=== PATIENT | female | born 1990 | race African-American/Black ===

== ENCOUNTER 2021-06-28 17:05 | Inpatient (IN) | payer OTHER, SELFPAY ==
[2021-06-28] VITALS (10 sets, daily range): BP systolic 116–144; BP diastolic 67–84; PULSE 84–95; TEMP 36.9; BMI 39.7
--- NOTE | 2021-06-28 17:41 | LDADM ---
This patient, Moira Stoner, was admitted to Labor/Delivery/Recovery 103 on 06/28/21 at 17:05. Plans for labor, pain management and were discussed with patient. Patient/family oriented to hospital policies and general routines including ID bracelet, bed and alarms, visiting hours, pain management, procedures, bathroom and other care routines, personal items, smoking policy, room service/diet and guest tray routines, security routines, and visiting hours. Patient/Family are encouraged to report perceived risks to care and to ask questions if they do not understand what they are told or what they should do. See OBIX for further documentation.
[2021-06-28 18:13] LABS: Basophils Percent Auto 0.1 % (0.2-1.2); Eosinophils Percent Auto 0.4 % (0-4.4); Hematocrit 35.2 % (37.0-47.0); Hemoglobin 11.7 g/dL (12.0-15.0); Immature Granulocyte Absolute 0.03 K/mm3 (0.00-0.031); Immature Granulocyte Percent A 0.4 % (0-0.5); Lymphocytes Absolute Auto 1.17 K/mm3 (0.9-3.2); Lymphocytes Percent Auto 16.9 % (18.3-44.2); Mean Corpuscular HGB Conc 33.2 g/dl (32-36); Mean Corpuscular Hemoglobin 28.4 pg (26-34); Mean Corpuscular Volume 85.4 fl (80-100); Mean Platelet Volume 10.6 fl (7.4-10.4); Monocytes Absolute Auto 0.4 K/mm3 (0.1-0.6); Monocytes Percent Auto 5.5 % (2.6-8.5); Neutrophils Absolute Auto 5.3 K/mm3 (1.3-6.7); Neutrophils Percent Auto 76.7 % (45.5-73.1); Platelet Count Result 215 k/mm3 (150-375); Red Blood Count 4.12 M/mm3 (4.2-5.4); Red Cell Distribution Width 13.3 % (11.5-14.5); White Blood Count 6.9 K/mm3 (4.5-10.0)
[2021-06-28] MEDS: DINOPROSTONE 10 MG VAG INSERT VAGINAL (18:18)
[2021-06-29] VITALS (134 sets, daily range): BP systolic 100–205; BP diastolic 53–192; PULSE 70–170; RESP 16; TEMP 36.1–37.4; O2SAT 94–100
[2021-06-29] MEDS: fentaNYL CITRATE INJ (*CRX) 100 MCG/2 ML VIAL 50 MCG IV PUSH ×2 (03:58→06:17)
[2021-06-29] MEDS: LACTATED RINGERS 1,000 ML 125 ML IV CONT ×2 (05:41→06:38)
[2021-06-29] MEDS: OXYTOCIN 30 UNITS/NS 500 ML 30 UNITS/500 ML BAG 6 UNITS IV CONT (05:42)
--- NOTE | 2021-06-29 06:21 | WPDANESEPP ---
Anes - Eval Pre Procedure Procedure: labor epidural Date/Time: 06/29/21 06:21 Surgeon: katharine Preop Diagnosis: pain during labor Pre Op Diagnosis: IOL Patient Data Age: 30 Gender: F Height: 1.63 m Weight: 105 kg Last Vital Signs Temp 37.3 C 06/29/21 00:45 Pulse 89 06/29/21 06:15 BP 128/73 06/29/21 06:15 Allergies Allergy/AdvReac Type Severity Reaction Status Date / Time No Known Allergies Allergy Verified 06/08/21 15:35 Home Medications Medication Instructions Recorded Confirmed Type magnesium 250 mg PO DAILY 06/08/21 06/08/21 History prenat.vits,jorge,uyg-kjdl-tspvd 1 tablet PO DAILY 06/08/21 06/08/21 History [ #2] nitrofurantoin monohyd/m-cryst 100 mg PO Q12H 06/28/21 06/28/21 History [Macrobid] Laboratory Tests 06/28/21 06/28/21 06/28/21 18:03 18:03 18:03 WBC 6.9 K/mm3 K/mm3 (4.5-10.0) RBC 4.12 M/mm3 L M/mm3 (4.2-5.4) Hgb 11.7 g/dL L g/dL (12.0-15.0) Hct 35.2 % L % (37.0-47.0) MCV 85.4 fl fl (80-100) MCH 28.4 pg pg (26-34) MCHC 33.2 g/dl g/dl (32-36) RDW 13.3 % % (11.5-14.5) Plt Count 215 k/mm3 k/mm3 (150-375) MPV 10.6 fl H fl (7.4-10.4) Immature Gran % (Auto) 0.4 % % (0-0.5) Neut % (Auto) 76.7 % H % (45.5-73.1) Lymph % (Auto) 16.9 % L % (18.3-44.2) [place] % (Auto) 5.5 % % (2.6-8.5) Eos % (Auto) 0.4 % % (0-4.4) Baso % (Auto) 0.1 % L % (0.2-1.2) Lymph # (Auto) 1.17 K/mm3 K/mm3 (0.9-3.2) [place] # (Auto) 0.4 K/mm3 K/mm3 (0.1-0.6) Eos # (Auto) 0.0 K/mm3 K/mm3 (0-0.3) Baso # (Auto) 0.0 K/mm3 K/mm3 (0.0-0.1) Abs Immat Gran (auto) 0.03 K/mm3 K/mm3 (0.00-0.031) Absolute Neuts (auto) 5.3 K/mm3 K/mm3 (1.3-6.7) Absolute Nucleated RBC 0.0 K/mm3 K/mm3 (0.0-0.012) Nucleated RBC % 0.0 % % (0.0-0.2) RPR Pending Blood Type O Positive Antibody Screen Negative Patient hx anesthesia problems: none Family hx anesthesia problems: none Results Review: All pre-operative results and documents have been reviewed as part of the pre-operative evaluation. [facility] Family History Family History (Updated 06/08/21 @ 15:38 by Rebecca Jackson RN) Grandparent Hypertension High cholesterol Grandparent Leukemia Diabetes mellitus Mother Fibromyalgia Social History Social History Smoking status: Never smoker Second hand tobacco smoke exposure: No Substance use: never Spiritual care concerns: No Exam Day of Procedure 06/29/21 06:21
[2021-06-29 06:33] LABS: Rapid Plasma Reagin Non-Reactive (NonReactive)
--- NOTE | 2021-06-29 08:45 | WPDOBADMIT ---
Obstetrics - Admit Note Admission Note: record reviewed. Additions to the history and/or subsequent changes in the physical findings follow. 30 y/o at 39 2/7 weeks gestation here for induction of labor. Cervidil overnight, has been withdrawn. AVSS NST reactive TOCO: contractions every 2-4 min ABD soft, nontender, gravid, vertex EXT nontender Cervix 5/90/-2. AROM with clear fluid. A: IUP at 39 2/7 weeks here for induction of labor. P: Oxytocin. Anticipate .
--- NOTE | 2021-06-29 12:22 | PM.OBPNLAB ---
Pain Control Date/time seen: 06/29/21 12:22 Comments: Comfortable. AVSS NST reactive TOCO: contractions every 2-4 min Cervix Complete / +1 Begin pushing.
--- NOTE | 2021-06-29 13:47 | PM.OBPRVD ---
OB - Delivery Note Procedure Delivery date: 06/29/21 Procedure: Induction of labor with Induction method: Per Cervidil Protocol Delivery augmentation: Rupture of Membranes and Pitocin Delivery monitor: External FHT and External Uterine Route of delivery: Episiotomy description: Midline Delivery repair: vicryl (3-0) Specimen: Yes (cord blood) Quantitative Blood Loss (ml): 410 Anesthesia type: Local (1% lidocaine) Disposition: PACU Complications: None Narrative: 30 y/o at 39 1/7 weeks gestation who presented to the hospital for induction of labor. Cervidil was placed overnight and withdrawn the following morning. Oxytocin was administered intravenously. Amniotomy was performed with return of clear fluid. She received an epidural for pain control. Her labor progressed and her cervix dilated completely. She pushed with good effort. A midline episiotomy was made and the 's head delivered to the perineum, followed by the body. The nose and mouth were bulb suctioned. After a delay, the cord was clamped and cut. The infant was handed off the field. Cord blood was collected. The placenta delivered spontaneously and was grossly normal in appearance. The usual 3 vessel cord was noted. The MLE was noted to be free of extension. Ten mL of 1% lidocaine was administered for additional anesthesia. The episiotomy was reapproximated using 3 0 Vicryl in the usual layered fashion. Excellent hemostasis resulted as did excellent reapproximation of the normal anatomy. Needle and instrument counts were correct. The patient was taken to recovery room in stable condition. The infant went to the nursery in stable condition. I was present and scrubbed for the entire delivery. Baby Date of : 06/29/21 Time of : 13:24 Weeks of gestation at delivery: 39 Infant gender: Male Weight (pounds): 7 Weight (ounces): 2 presentation: vertex position: Right Occiput Posterior Placenta delivery description: Spontaneous and Normal Configuration Cord Vessel Description: 3 Vessels and Delayed Cord Clamping score one minute: 8 score five minutes: 8
--- NOTE | 2021-06-29 13:50 | PM.OBDSVD ---
DS: Admitting Diagnosis Discharge Date 07/01/21 Admitting Diagnosis IUP at 39 weeks DS: Discharge Diagnosis Discharge Diagnosis (1) (normal spontaneous vaginal delivery): Code(s): O80 - Encounter for full-term uncomplicated delivery Status: Acute OB - DS: Summary OB Procedures : None OB Procedures Intrapartum: Spontaneous Vag Delivery OB Procedures: : None DS: Data Data Completed and Pending Labs on day of discharge: Labs from last 24 hours 06/28/21 06/28/21 06/28/21 18:03 18:03 18:03 WBC 6.9 RBC 4.12 L Hgb 11.7 L Hct 35.2 L MCV 85.4 MCH 28.4 MCHC 33.2 RDW 13.3 Plt Count 215 MPV 10.6 H Immature Gran % (Auto) 0.4 Neut % (Auto) 76.7 H Lymph % (Auto) 16.9 L [place] % (Auto) 5.5 Eos % (Auto) 0.4 Baso % (Auto) 0.1 L Lymph # (Auto) 1.17 [place] # (Auto) 0.4 Eos # (Auto) 0.0 Baso # (Auto) 0.0 Abs Immat Gran (auto) 0.03 Absolute Neuts (auto) 5.3 Absolute Nucleated RBC 0.0 Nucleated RBC % 0.0 RPR Non-reactive Blood Type O Positive Antibody Screen Negative Discharge Plan Discharge Attending physician on discharge: Wing Chowdary Discharging Clinician: Wing Chowdary Patient Disposition: Home, Self-Care Activity: pelvic rest Diet: regular Discharge Instructions: Call or return if temperature above 100.4? F, increased abdominal pain, increased vaginal bleeding or any new problems. Stand Alone Forms: General Discharge Information Follow-up/Referrals: Wing Chowdary MD [Physician] - 6 Weeks Discharge Medications: New ibuprofen 600 mg tablet 600 mg PO Q6H PRN (Reason: cramps) Qty: 30 RF: 0 Continued magnesium 250 mg Tablet 250 mg PO DAILY RF: 0 #2 Tablet 1 tablet PO DAILY RF: 0 Discontinued nitrofurantoin monohyd/m-cryst [Macrobid] 100 mg Capsule 100 mg PO Q12H RF: 0 Date of admission: 06/28/21 17:05 Primary Care Provider: Luz MariaIman Admitting Provider: Wing Chowdary Attending physician on admission: Wing Chowdary Condition: Stable
[2021-06-29] MEDS: OXYTOCIN 30 UNITS/NS 500 ML 30 UNITS/500 ML BAG 125 UNITS IV CONT (13:51)
[2021-06-29] MEDS: IBUPROFEN 600 MG TABLET PO (14:24)
[2021-06-29] MEDS: BENZOCAINE 20% AER SPR (*SP) 56 GM CAN 1 SPRAY TOPICAL (16:22)
[2021-06-29] MEDS: WITCH HAZEL 40 PADS 1 PAD TOPICAL (16:22)
--- NOTE | 2021-06-29 17:25 | PC.NURSE ---
Pt admitted to room 278,became teary when this RN ask to do baby assessment, states I just want him to be fed. Agreed to help her latch baby, baby making good effort, however mom's nipples are flat and baby unable to obtain and maintain a good latch. Nipple shield retrieved and some brief teaching done as it is obvious mother is becoming frustrated. Baby latches well and suckles with shield. Mother asks how she knows he's getting enough. Explanation of wet diapers, weights and jaundice level will tell if baby is getting adequate colostrum. mother still appears anxious and frustrated. RN steps back and allows mother to work with baby. Mother asks if she can just get a bottle . Grandmother (at bedside) states that mother is just exhausted and frustrated. Formula bottle obtained, directions given. Assessment and teaching deferred at this time.
[2021-06-30 00:50] VITALS: BP 113/61; PULSE 85; RESP 16; TEMP 36.3; O2SAT 100
[2021-06-30] MEDS: IBUPROFEN 600 MG TABLET PO ×3 (02:04→20:11)
[2021-06-30 03:35] VITALS: BP 138/78; PULSE 88; RESP 16; TEMP 36.3; O2SAT 99
--- NOTE | 2021-06-30 04:19 | PC.NURSE ---
06/30/2021 at 0330 Moira called out and states she wants to use a breastpump now. A pump and kit were taken to Moira and I began setting up the pump for her. I need a size 17 flange. states Moira. Well I believe the smallest ones we have are 21. We have 24 and 27 in this kit but let me go check the room. After checking the room I found we only have 21 as the smallest flanges. I informed Moira of this and and she said she could have someone bring the flanges from her house sometime today or tomorrow. I suggested it be as soon as possible so that her breasts can be stimulated to bring her milk in. Oh, ya I know, Moira replied. I asked her how she knows what size she needs for a proper flange fit and she states she has a friend that just graduated as a nurse and she measured Moira. Moira did not offer for me to see her breasts or nipples to see if indeed the size 17 flange was needed. I left the pump in the room and told Moira she needs to pump as soon as possible. Moira states understanding. Moira also asked who is going to review with her questions regarding baby's care. I suggested the purple Mom/Baby guide and the discharge DVD as excellent references and to ask any questions along the way that she gets, that any of us are more than happy to answer. Moira states understanding.
[2021-06-30 04:38] LABS: Hematocrit 30.5 % (37.0-47.0); Hemoglobin 10.1 g/dL (12.0-15.0)
--- NOTE | 2021-06-30 08:28 | PM.OBPNVD ---
OB - PN: Subj Subjective Date/time seen: 06/30/21 08:28 Narrative: Pain OK. Desires circumcision for son. OB - PN: Obj Data Labs CBC & Chem 7: 06/30/21 03:40 Labs: Laboratory Results - last 24 hr 06/30/21 03:40 Hgb 10.1 L Hct 30.5 L OB - PN A/P Plan Comments: A: PPD#1, doing well. P: Routine care. Reviewed circ. Exam Psych: Other: AVSS ABD soft, nontender, fundus firm EXT nontender
[2021-06-30 08:30] VITALS: BP 128/74; PULSE 99; RESP 16; TEMP 36.4; O2SAT 99
--- NOTE | 2021-06-30 10:43 | WPDANLDPN2 ---
Anes-Prog Note L&D Date/Time: 06/30/21 10:43 Comfortable throughout: labor and delivery Neuraxial method: epidural Epidural/Spinal procedure site: tender Neuro status: Neuro function grossly intact. Cardiovascular status: normal Respiratory status: normal Airway patency: baseline Mental status: baseline Post-Op hydration status: normal Vital Signs: Last Vital Signs Temp 97.6 F 06/30/21 08:30 Pulse 99 06/30/21 08:30 Resp 16 06/30/21 08:30 BP 128/74 06/30/21 08:30 Pulse Ox 99 06/30/21 08:30 Pain score (VAS): 03/05 I/O: Intake & Output 06/29/21 06/30/21 06/30/21 23:59 07:59 15:59 Intake Total 120 Output Total 82 Balance -82 120 Post-procedural complaints: none Patient feedback: Patient satisfied with anesthetic care.
[2021-06-30] MEDS: MULTIVIT/MIN/PREN/FOL AC/IRON TABLET 1 TAB PO (11:11)
[2021-06-30 12:20] VITALS: BP 117/69; PULSE 87; RESP 18; TEMP 36.8; O2SAT 98
[2021-06-30 20:20] VITALS: BP 129/72; PULSE 88; RESP 16; TEMP 36.4; O2SAT 99
[2021-07-01 07:10] VITALS: BP 125/61; PULSE 83; RESP 16; TEMP 36.4; O2SAT 99
[2021-07-02 07:58] VITALS: BP 117/80; PULSE 89; RESP 16; TEMP 36.6; O2SAT 98
--- NOTE | 2021-07-17 08:41 | PM.OBDSVD ---
DS: Admitting Diagnosis Discharge Date 07/01/21 Admitting Diagnosis IUP at term DS: Discharge Diagnosis Discharge Diagnosis (1) (normal spontaneous vaginal delivery): Code(s): O80 - Encounter for full-term uncomplicated delivery Status: Acute OB - DS: Summary OB Procedures : None OB Procedures Intrapartum: Spontaneous Vag Delivery OB Procedures: : None Time Spent with Patient Time attestation: Total time spent providing and/or coordinating discharge services: Discharge Plan Discharge Attending physician on discharge: Wing Chowdary Consulting providers: Tracy Naranjo ; Daron Deckre Discharging Clinician: Wing Chowdary Patient Disposition: Home, Self-Care Activity: pelvic rest Diet: regular Discharge Instructions: Education: Mom and Baby Guide Given to: Mother Follow-Up: Call your delivering provider's office for an appointment to be seen in: 6 Weeks Mom and baby [facility] for the follow-up appointment. Appointment Date/Time: July 02, 2021 at 8:00 am What to expect at your follow-up visit: Blood Pressure Check Physical Assessment Call [phone] if you are unable to keep your appointment time. BREAST CARE: * Wear a snug supportive bra. * For engorgement discomfort: Breast Feeding: * Apply warm moist washcloths * Express milk as needed to relieve engorgement * Wear loose clothing Bottle Feeding: * May apply ice packs * For sore nipples: * Identify correct latch-on * Apply warm moist washcloths before and after nursing * Air dry nipples after nursing * May apply Lansinoh cream to nipples EPISIOTOMY/PERINEAL CARE: * Until bleeding stops, use your princess bottle after urinating * Change your pad frequently throughout the day * You may take sitz baths several times a day (fill your bathtub with warm water and soak for 20 minutes.) Do NOT bathe in the water * No tub baths until seen by your physician - You may shower ACTIVITY: * Rest as much as possible. * Do not exercise or lift anything heavier than your baby (such as laundry or other children.) * Avoid stairs or driving as much as possible. * Do not put anything into the vagina. No douching, tampons, or sexual activity until seen by physician. NOTIFY PHYSICIAN IF YOU HAVE ANY QUESTIONS OR IF ANY OF THE FOLLOWING SYMPTOMS OCCUR: * If your episiotomy or incision becomes red, swollen, or more painful than what you have experienced in the hospital. * If your vaginal bleeding becomes foul smelling. * If your vaginal bleeding becomes more heavy than a period or if your bleeding changes from pink to bright red. However, you may pass an occasional walnut-sized clot once or twice for the first week . * If you experience a sharp, shooting pain in you calves. * If you discover a hard, reddened area on your breast or if you experience flu-like symptoms. DIET: * Eat regular, well-balanced meals. * Drink plenty of fluids daily. If , drink to thirst.Call or return if temperature above 100.4? F, increased abdominal pain, increased vaginal bleeding or any new problems. Stand Alone Forms: General Discharge Information Follow-up/Referrals: Wing Chowdary MD [Physician] - 6 Weeks Discharge Medications: New ibuprofen 600 mg tablet 600 mg PO Q6H PRN (Reason: cramps) Qty: 30 0RF Continued magnesium 250 mg Tablet 250 mg PO DAILY prenat.vits,jorge,qcw-ntaf-zdlku Tablet 1 tablet PO DAILY Discontinued nitrofurantoin monohyd/m-cryst [Macrobid] 100 mg Capsule 100 mg PO Q12H Date of admission: 06/28/21 17:05 Primary Care Provider: Luz Maria,Iman Admitting Provider: Wing Chowdary Attending physician on admission: Wing Chowdary Condition: Stable
== END 2021-07-01 11:35 | disposition home or self-care (01) | DRG 807 ==
LOC: ANHLDR 06-29 13:51 → ANHOB2 06-29 17:47
PROVIDERS: Admitting Provider Obstetrics & Gynecology; PCP Family Medicine; Visit Provider Obstetrics & Gynecology
DX: O36.8330 Maternal care for abnormalities of the fetal heart rate or rhythm, third trimester, not applicable or unspecified (principal); Z37.0 Single live birth; Z3A.39 39 weeks gestation of pregnancy
CPT/HCPCS: 36415; 85014; 85018; 85025; 86592; 86850; 86900; 86901; A9270; J2590; J2795; J3010; J7120

== ENCOUNTER 2024-08-31 14:15 | Outpatient (CLI) | payer OTHER, SELFPAY ==
--- OUTSIDE RECORDS SUMMARY | 2024-08-31 14:21 | XMS_ITS | Clinical Summary ---
Author Organization [facility] Address [address] [place] [address] Phone Care Team Providers Care Sales Service Manager Name Role Phone Magnus Davenport MD Primary Care Provider [phone] Medications cetirizine (ZyrTEC) 10 mg tablet Take 10 mg by mouth daily. Active multivitamin,tx -iron-ca-min (THERA-M) 27-0.4 mg Tablet Take 1 Tablet by mouth daily. Active cyanocobalamin 1,000 mcg Tablet Take 1,000 mcg by mouth daily. Active semaglutide 0.25 mg or 0.5 mg (2 mg/3 mL) Pen Injector Inject by subcutaneous injection. Active Active Problems Patient Care Coordination No te Formatting of this note migh t be different from the original. Prev 03/07/23 Problem Noted Date Diagnosed Date Abnormal glucose 03/07/2023 Obesity (BMI 35.0-39.9 without comorbidity) 02/24 Vitamin D deficiency 03/07/2023 Vitamin B12 deficiency (non anemic) 03/07/2023 Encounters Date Type Department Care Team Description 08/24/2024 External Device Data STL ABSTRACTION Provider, Abstract from Last 3 Months Immunizations Immunization Administration Dates Next Due (ADACEL/BOOSTRIX)(10 YR UP) TDAP VACCINE, 0.5ML, IM 04/20/2021 INFLUENZA VACCINE QUADRIVALE NT 6 MOS UP PF IM 11/28/2020 Influenza Seasonal Unspecifi ed Formulation IM 12/27/2022,12/21/2019,11/25/2018 Skin Test TB 12/21/2019,,09/12/2015,2015 Family History Relation Name Status Comments Father Unknown Mother Alive Social History Tobacco Use Types Packs/Day Years Used Date Smoking Tobacco: Never Passive Smoke Exposure: Never Smokeless Tobacco: Never Tobacco Cessation:Counseling Given: No Alcohol Use Standard Drinks/Week Comments Yes 4 (1 standard drink = 0.6 oz pur e alcohol) social Comments No Sex and Gender Information Value Date Recorded Sex Assigned at Not on file Legal Sex Female 1:14 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 Gender Identity Not on file Sexual Orientation Not on file Last Filed Vital Signs Vital Sign Reading Time Taken Comments Blood Pressure 120/80 11/07/2023 10:14 AM CDT Pulse 100 11/07/2023 10:14 AM CDT Temperature 36.2 C (97.1 F) 03/07/2023 9:53 AM ELECTRIC RANGE ASSEMBLER Respiratory Rate 17 03/07/2023 9:53 AM ELECTRIC RANGE ASSEMBLER Oxygen Saturation 96% 11/07/2023 10:14 AM CDT Inhaled Oxygen Concentration - - Weight 88.5 kg (195 lb) 11/07/2023 10:14 AM CDT Height 162.6 cm (5' 4) 11/07/2023 10:14 AM CDT Body Mass Index 33.47 11/07/2023 10:14 AM CDT Plan of Treatment Upcoming Encounters Date Type Department Care Team (Late st Contact Info) Description 11/12/2024 9:00 AM CDT Office Visit [facility] [id number] [place] [id number] Magnus Davenport MD [address] [place] [address] [address] [place] [phone] Health Maintenance Due Date Last Done Comments HEPATITIS B VACCINES (1 of 3 - 19+ 3-dose series) 11/25/2011 HPV/Cotest (21-29) 2013 CERVICAL CANCER SCREENING 2022 HPV/Cotest (30-65) 2022 PAP SMEAR 2022 06/04/2018 Preventative Visit- Commercial 02/25/2024 03/07/2023, 07/17/2016, 05/17/2015 INFLUENZA VACCINE (#1) 2024 4, 12/27/2022, 11/28/2020, Additional history exists DTAP/TDAP/TD VACCINES (2 - Td or Tdap) 04/20/2031 04/20/2021 HPV VACCINES Aged Out No longer eligi ble based on patient's age to complete this topic Insurance [employer] OPEN ACCESS HMO Care Teams Sales Service Manager Relationship Specialty Start Date End Date Magnus Davenport MD [address] [place] [phone] PCP - General Internal Medicine 03/07/23
--- OUTSIDE RECORDS SUMMARY | 2024-08-31 14:21 | XMS_ITS | Clinical Summary ---
Author Organization [facility] Address [address] [place] [phone] Care Team Providers Care Body Coverer Name Role Phone Iman Loera MD Primary Care Provider [phone] Allergies Active Allergy Reactions Criticality Noted Date Comments Fentanyl Nausea only Low 05/17/2022 Medications docusate sodium (Colace) 100 mg capsuleIndicati ons:constipatio n Take 1 capsule (100 mg total) by mouth 2 (two) times a day for 14 days 28 capsule 2 05/17/2022 Active Active Problems Problem Noted Date Diagnosed Date S/P laparoscopic cholecystectomy 05/24/2022 Discharge from [facility] 07/23/2016 Resolved Problems Problem Noted Date Diagnosed Date Resolved Date Symptomatic cholelithiasis 03/30/2022 0 05/24/2022 Overview (03/30/2022): Added automatically from request for surgery [id number] Chronic cholecystitis 03/28/20222022 Assessment & Plan (03/28/2022 8:52 AM SPICE MIXER): We will set the patient up for laparoscopic cholecystectomy. Postoperative issues such as post cholecystectomy diarrhea have been discussed. We have discussed time needed off work and lifting restrictions. All questions answered. Pre-admission testing will be sent in. Consent to be obtained. Surgical History Surgery Date Site/Laterality Comments WISDOM TOOTH EXTRACTION Medical History Medical History Date Comments Anxiety disorder Anxiety - (Adde d by TW Conv) Headache Chronic cholecystitis 03/28/2022 Symptomatic cholelithiasis 03/30/2022 Added automatically from request for surgery [id number] Family History Medical History Relation Name Comments No Known Problems Father Leukemia Maternal Grandfather Family history of leukemia - (Added by TW Conv) No Known Problems Mother No Known Problems Sister Relation Name Status Comments Father Alive Maternal Grandfather Mother Alive Sister Alive Social History Tobacco Use Types Packs/Day Years Used Date Smoking Tobacco: Never Passive Smoke Exposure: Never Smokeless Tobacco: Never Tobacco Cessation:Counseling Given: Not Answered AUDIT-C Answer Date Recorded Q1: How often do you have a drink containing alc ohol? Monthly or less 05/17/2022 Q2: How many drinks containi ng alcohol do you have on a typical day when you are drinking? 3 or 4 05/17/2022 Q3: How often do you have si x or more drinks on one occasion? Less than monthly 05/17/2022 Personal Safety Answer Date Recorded Have you ever been in or are you currently in a harmful physical or emotional relationship or is someone making you feel afraid or unsafe? Denies 05/17/2022 Comments No Sex and Gender Information Value Date Recorded Sex Assigned at Not on file Legal Sex Female 11:48 AM SPICE MIXER Gender Identity Female 03/23/2022 7:34 AM SPICE MIXER Sexual Orientation Not on file Obstetrics History Last Filed Vital Signs Vital Sign Reading Time Taken Comments Blood Pressure 118/80 05/23/2022 11:21 AM CDT Pulse 82 05/23/2022 11:21 AM CDT Temperature 35.8 C (96.4 F) 05/23/2022 11:21 AM CDT Respiratory Rate 18 05/17/2022 1:00 PM CDT Oxygen Saturation 96% 05/23/2022 11:21 AM CDT Inhaled Oxygen Concentration - - Weight 101 kg (222 lb 11.2 oz) 05/23/2022 11:21 AM CDT Height 162.6 cm (5' 4) 05/23/2022 11:21 AM CDT Body Mass Index 38.23 05/23/2022 11:21 AM CDT Plan of Treatment Health Maintenance Due Date Last Done Comments Cervical Cancer Screening 1992 Depression Screening 1992 Hepatitis C Screening 1992 Varicella Vaccines (1 of 2 - 13+ 2-dose series) 2005 Hepatitis B Screening 2010 Regular Well Visit/Exam 18-64 2010 Covid-19 Vaccine (4 - 2023-2 5 season) 2023 08/20/2021, 06/19/2020, 05/08/2020 Influenza Vaccine (Season Ended) 2024 11/28/2020, 12/21/2019, 11/25/2018 DTaP/Tdap/Td Vaccine (2 - Td or Tdap) 04/20/2031 04/20/2021 HPV Vaccines Aged Out No longer eligi ble based on patient's age to complete this topic Pneumococcal vaccine <65 Aged Out No longer eligible based on patient's age to complete this topic Medical Devices Implanted Type Area Pattern Marking Supervisor Device Identifier Shelf Expiration Date Model / Serial / Lot [employer] Hem-O-Benton Ligate Nonabsorbable Cartridge Medium Large Latex Free [id number] - [id number] Implanted:Qty: 1 on 05/17/2022 by Julian Carter MD at [facility] N/A: Abdomen [employer] 02/05/2027 [id number] / / [id number] Description:6 clips used Insurance [employer] OOS Member Subscriber Plan / Payer (Ef fective 2019-Present) Name:Moira Stoner Relation to Subscriber:Self Name:Moira Stoner Payer ID:[id number] (NAIC) Type:Per Vices Address: [facility] [id number] [facility] Address: [address] [address] [place] [address] [employer]IG[employer] OPEN ACCESS CIGNA OPEN ACCESS Care Teams Body Coverer Relationship Specialty Start Date End Date Iman Loera MD PCP - General 07/23/16
--- OUTSIDE RECORDS SUMMARY | 2024-08-31 14:21 | XMS_ITS | Encounter Summary ---
Author Organization [facility] Address [address] [place] [address] Care Team Providers Care Rn Travel Name Role Phone Magnus Davenport MD Primary Care Provider [phone] Encounter Details Date Type Department Care Team (Late Contact Info) Description 07/10/2018 Lab Requisition [facility] General Laboratory Services S Formerly [facility] [address] [place] [address] [place] [address] [facility] [address] [place] [address] Encounter for general adult medical examination without abnormal findings Social History Tobacco Use Types Packs/Day Years Used Date Smoking Tobacco: Never Assessed Comments Unknown Sex and Gender Information Value Date Recorded Sex Assigned at Not on file Legal Sex Female 1:14 PM ASSOCIATE RELATIONS SPECIALIST Gender Identity Not on file Sexual Orientation Not on file documented as of this encounter Plan of Treatment Upcoming Encounters Date Type Department Care Team (Late Contact Info) Description 11/12/2024 9:00 AM CDT Office Visit [facility] Primary Care [address] [place] [address] Magnus Davenport MD [address] [place] [address] [address] [place] [address] documented as of this encounter Procedures Procedure Name Priority Date/Time Associated Diagnosis Comments HEPATITIS B SURFACE AB, QUANT Routine 07/10/2018 10:32 AM CDT Encounter for general adult medical examination without abnormal findings documented in this encounter Results * (ABNORMAL) HEPATITIS B SURFACE AB, QUANT (07/10/2018 10:32 AM CDT) HEPATITIS B SURF AB,QN <4.0 mlU/mL 07/10/2018 8:50 PM CDT [facility] HEPATITIS B SURFACE AB INTERP Non-reacti ve(A) See Interp 07/10/2018 8:50 PM CDT [facility] Blood Collection / Unknown 07/10/2018 10:32 AM CDT 07/10/2018 4:03 PM CDT Narrative [facility] - 07/10/2018 8:50 PM CDT Patient does not have immunity to Hepatitis B virus. This assay is used to determine immune status to Hepatitis B as greater than or equal to 10 mIU/mL as per CDC guidelines (MMWR:vol 55: RR-16, 2006). Luis Marshall MD CHEMISTRY ORDERABLES Final R esult [facility] CLIA# [id number] [address] [facility] [place] [address] documented in this encounter Visit Diagnoses Diagnosis Encounter for general adult medical examination without abnormal findings Routine general medical examination at a health care facility documented in this encounter Additional Health Concerns Infection Onset Date Last Indicated Resolved Time R/O COVID-19 10/15/2019 10/15/2019 10/17/2019 1:31 AM CDT R/O COVID-19 01/11/2020 01/11/2020 01/13/2020 3:55 AM ASSOCIATE RELATIONS SPECIALIST COVID-19 01/11/2020 01/11/2020 02/10/2020 1:16 AM ASSOCIATE RELATIONS SPECIALIST documented as of this encounter Care Teams Rn Travel Relationship Specialty Start Date End Date Magnus Davenport MD [address] [place] [phone] PCP - General Internal Medicine 03/07/23 documented as of this encounter
--- OUTSIDE RECORDS SUMMARY | 2024-08-31 14:21 | XMS_ITS | Referral Summary ---
Author Organization [facility] Address [address] [place] [address] Care Team Providers Care Hydroelectric Plant Mechanical Engineer Name Role Phone Iman Loera MD Primary Care Provider Allergies Active Allergy Reactions Criticality Noted Date Comments Fentanyl Nausea only Low 05/17/2022 Medications docusate sodium (Colace) 100 mg capsuleIndicati ons:constipatio n Take 1 capsule (100 mg total) by mouth 2 (two) times a day for 14 days 28 capsule 2 05/17/2022 Active Active Problems Problem Noted Date Diagnosed Date S/P laparoscopic cholecystectomy 05/24/2022 Discharge from [facility] 07/23/2016 Resolved Problems Problem Noted Date Diagnosed Date Resolved Date Symptomatic cholelithiasis 03/30/2022 0 05/24/2022 Overview (03/30/2022): Added automatically from request for surgery [id number] Chronic cholecystitis 03/28/20222022 Assessment & Plan (03/28/2022 8:52 AM CASH POSTER): We will set the patient up for laparoscopic cholecystectomy. Postoperative issues such as post cholecystectomy diarrhea have been discussed. We have discussed time needed off work and lifting restrictions. All questions answered. Pre-admission testing will be sent in. Consent to be obtained. Social History Tobacco Use Types Packs/Day Years [...] on file Legal Sex Female 11:48 AM CASH POSTER Gender Identity Female 03/23/2022 7:34 AM CASH POSTER Sexual Orientation Not on file Last Filed [...] 05/23/2022 11:21 AM CDT Plan of Treatment Not on file Medical Devices Implanted Type Area Center Specialists Device Identifier Shelf Expiration Date Model / Serial / Lot [employer] Weck Hem-O-Benton Ligate Nonabsorbable Cartridge Medium Large Latex Free [id number] - [id number] Implanted:Qty: 1 on 05/17/2022 by Julian Carter MD at [facility] N/A: Abdomen [employer] 02/05/2027 [id number] / / [id number] Description:6 clips used Insurance [facility] OOS [facility] CHOICE PLUS CIGNA OPEN ACCESS CIGNA OPEN ACCESS Care Teams Hydroelectric Plant Mechanical Engineer Relationship Specialty Start Date End Date Iman Loera MD PCP - General 07/23/16
--- OUTSIDE RECORDS SUMMARY | 2024-08-31 14:21 | XMS_ITS | Clinical Summary ---
Author Organization [facility] Address [address] [place] [address] Phone Care Team Providers Care Glass Beveler Name Role Phone Jael Flynn APRN, ODD BUNDLE WORKER Unavailable [phone] Allergies No known active allergies Medications pantoprazole (PROTONIX) 40 MG Tablet Delayed Response Take 1 Tablet by mouth daily. 30 Tablet 5 04/12/2022 Active Active Problems No known active problems Immunizations Immunization Administration Dates Next Due Influenza Vaccine greater than 3 yrs 11/25/2018 Influenza Vaccine, Quadrivalent, PF 11/28/2020 Influenza, Seasonal, Injectable, Undefined 12/20,11/25/2018 TB Skin Test 09/12/2015,09/05/2015 TDAP Vaccine 04/20/2021 Family History Medical History Relation Name Comments Cancer Maternal Grandfather Diabetes Maternal Grandfather Relation Name Status Comments Maternal Grandfather Social History Tobacco Use Types Packs/Day Years Used Date Smoking Tobacco: Never Smokeless Tobacco: Never Tobacco Cessation:Counseling Given: No Alcohol Use Standard Drinks/Week Comments Yes 0 (1 standard drink = 0.6 oz pur e alcohol) PHQ-2 Answer Date Recorded Total Score - Questions 1-9 0 06/2020 Education Answer Date Recorded What is the highest level of school you have completed or the highest degree you have received? Associate degree: academic program 02/20/2022 Comments No Sex and Gender Information Value Date Recorded Sex Assigned at Not on file Legal Sex Female 8:50 PM CDT Gender Identity Not on file Sexual Orientation Not on file Last Filed Vital Signs Vital Sign Reading Time Taken Comments Blood Pressure 124/82 02/21/2022 8:49 AM EARTH SCIENCES PROFESSOR Pulse 93 02/21/2022 8:49 AM EARTH SCIENCES PROFESSOR Temperature 36.3 C (97.4 F) 02/21/2022 8:49 AM EARTH SCIENCES PROFESSOR Respiratory Rate 16 02/21/2022 8:49 AM EARTH SCIENCES PROFESSOR Oxygen Saturation 98% 02/21/2022 8:49 AM EARTH SCIENCES PROFESSOR Inhaled Oxygen Concentration - - Weight 105.1 kg (231 lb 11.2 oz) 2021 8:49 AM EARTH SCIENCES PROFESSOR Height 165.1 cm (5' 5) 02/21/2022 8:49 AM EARTH SCIENCES PROFESSOR Body Mass Index 38.56 02/21/2022 8:49 AM EARTH SCIENCES PROFESSOR Plan of Treatment Health Maintenance Due Date Last Done Comments Hepatitis C Virus (HCV) Screening 1992 Human Papillomavirus (HPV) Immunization (1 - 3-dose series) 11/25/2007 Hepatitis B Immunization (1 of 3 - 19+ 3-dose series) 11/25/2011 Pap Smear 06/04/2021 06/04/2018 Cervical Cancer Screening (CCS) 2022 HPV/Cotest 2022 SARS-COV-2 Immunization ( season) 2023 12/12/2021, 08/20/2021, 06/19/2020, Additional history exists Influenza Immunization (#1) 2024 1006/2020, 12/21/2019, 11/25/2018, Additional history exists Respiratory Syncytial Virus (RSV) Immunization (Adult) (1 - 1-dose 75+ series) 11/25/2067 DTaP/Tdap/Td Immunization Discontinued 04/20/2021 Meningococcal Immunization (ACWY) Aged Out No longer eligible based on patient's age to complete this topic Pneumococcal Immunization Combined Aged Out No longer eligible based on patient's age to complete this topic Rotavirus Immunization Aged Out No lo nger eligible based on patient's age to complete this topic Procedures Procedure Name Priority Date/Time Associated Diagnosis Comments PATHOLOGY CYTOLOGY COMPOSITOR APPRENTICE Routine 06/04/2018 from Last 3 Months or Most Recently Relevant to Health Maintenance Results * PATHOLOGY CYTOLOGY COMPOSITOR APPRENTICE (06/04/2018) Other Jael Flynn APRN, CNP PATHOLOGY/CYTOLOGY ORDER VALDEMAR Final Result from Last 3 Months or Most Recently Relevant to Health Maintenance Insurance [employer] Care Teams Glass Beveler Relationship Specialty Start Date End Date Jael Flynn APRN, CNP [address] [place] [id number] Nurse Practitioner Obstetrics & Gynecology 04/04/20
[2024-08-31 15:44] LABS: Hematocrit 31.4 % (37.0-47.0); Hemoglobin 10.5 g/dL (12.0-15.0); Mean Corpuscular HGB Conc 33.4 g/dl (32-36); Mean Corpuscular Hemoglobin 28.7 pg (26-34); Mean Corpuscular Volume 85.8 fl (80-100); Platelet Count Result 182 k/mm3 (150-375); Red Blood Count 3.66 M/mm3 (4.2-5.4); White Blood Count 8.0 K/mm3 (4.5-10.0)
[2024-08-31 16:00] LABS: Glucose 1 Hour PP 50gm Dose 126 mg/dL
== END 2024-08-31 14:16 | disposition home or self-care (01) ==
LOC: ANHLAB 14:18
PROVIDERS: PCP Internal Medicine; Visit Provider Obstetrics & Gynecology
DX: Z34.90 Encounter for supervision of normal pregnancy, unspecified, unspecified trimester (principal); Z3A.00 Weeks of gestation of pregnancy not specified
CPT/HCPCS: 36415; 82947; 85027

== ENCOUNTER 2024-09-22 11:23 | Outpatient (CLI) | payer OTHER, SELFPAY ==
--- NOTE | ~2024-09-22 | US_ITS ---
EXAMINATION: US OB follow up DATE: 09/22/2024 11:54 INDICATION: Size greater than gestational dates TECHNIQUE: Real-time transabdominal obstetric ultrasound. FINDINGS: No prior studies for comparison. There is a single living fetus in vertex presentation. The placenta is anterior without placenta pre via. cardiac activity and movement is noted with a heart rate of 134 beats per minute. T he amniotic fluid volume is normal. NAWAF measures 19.8 cm. The following biometric data were obtained: BPD: 82mm corresponds to gestational age 33 weeks 1 days. Head circumference: 298mm corresponds to gestational age 33 weeks 0 days. Abdominal circumference: 289mm corresponds to gestational age 33 weeks 0 days. Femur length: 57mm corresponds to gestational age 30 weeks 0 days. Estimated weight: 1906grams +/- 286grams.] IMPRESSION: 1. Single living intrauterine in vertex presentation with an estimated gestational age of 32 weeks 2 days by current ultrasound. 2. Normal placenta. 3: Normal NAWAF measures 19.8 cm. Reviewed, dictated and finalized at location A. IMPRESSION: 1. Single living intrauterine in vertex presentation with an estimat ed gestational age of 32 weeks 2 days by current ultrasound. 2. Normal placenta. 3: Normal NAWAF measures 19.8 cm.
== END 2024-09-22 11:24 | disposition home or self-care (01) ==
LOC: MICIMG 11:24
PROVIDERS: PCP Internal Medicine; Visit Provider Obstetrics & Gynecology
DX: Z34.92 Encounter for supervision of normal pregnancy, unspecified, second trimester (principal); Z3A.28 28 weeks gestation of pregnancy
CPT/HCPCS: 76816

== ENCOUNTER 2024-09-29 11:09 | Outpatient (CLI) | payer OTHER, SELFPAY ==
[2024-09-29 11:35] LABS: Hematocrit 31.7 % (37.0-47.0); Hemoglobin 10.5 g/dL (12.0-15.0); Mean Corpuscular HGB Conc 33.1 g/dl (32-36); Mean Corpuscular Hemoglobin 28.4 pg (26-34); Mean Corpuscular Volume 85.7 fl (80-100); Platelet Count Result 186 k/mm3 (150-375); Red Blood Count 3.70 M/mm3 (4.2-5.4); White Blood Count 5.5 K/mm3 (4.5-10.0)
--- OUTSIDE RECORDS SUMMARY | 2024-09-29 11:51 | XMS_ITS | Clinical Summary ---
Author Organization [facility] Address [address] [place] [phone] Care Team Providers Care Assistant General Manager Name Role Phone Iman Loera MD Primary Care Provider [phone] Allergies Active Allergy Reactions Criticality Noted Date Comments Fentanyl Nausea only Low 05/17/2022 Medications docusate sodium (Colace) 100 mg capsuleIndicati ons:constipatio n Take 1 capsule (100 mg total) by mouth 2 (two) times a day for 14 days 28 capsule 2 05/17/2022 Active Active Problems Problem Noted Date Diagnosed Date S/P laparoscopic cholecystectomy 05/24/2022 Discharge from [facility] 07/23/2016 Resolved Problems Problem Noted Date Diagnosed Date Resolved Date Symptomatic cholelithiasis 03/30/2022 0 05/24/2022 Overview (03/30/2022): Added automatically from request for surgery [id number] Chronic cholecystitis 03/28/20222022 Assessment & Plan (03/28/2022 8:52 AM DAIRY EQUIPMENT SPECIALIST): We will set the patient up for [...] 03/30/2022 Added automatically from request for surgery [id number] Family History Medical History Relation Name Comments [...] on file Legal Sex Female 11:48 AM DAIRY EQUIPMENT SPECIALIST Gender Identity Female 03/23/2022 7:34 AM DAIRY EQUIPMENT SPECIALIST Sexual Orientation Not on file Obstetrics History [...] Screening 2010 Regular Well Visit/Exam 18-64 2010 HPV Vaccines (1 - 3-dose SCD M series) 11/25/2019 Covid-19 Vaccine (2023-2 5 season) 2023 08/20/2021, 06/19/2020, 05/08/2020 Influenza Vaccine (#1) 2024 , 12/21/2019, 11/25/2018 DTaP/Tdap/Td Vaccine (2 - Td or Tdap) 04/20/2031 04/20/2021 Pneumococcal vaccine <65 Aged Out No longer eligible based on patient's age to complete this topic Medical Devices Implanted Type Area Supervisor Opening And Picking Device Identifier Shelf Expiration Date Model / Serial / Lot Fenergo Weck Hem-O-Benton Ligate Nonabsorbable Cartridge Medium Large Latex Free [id number] - [id number] Implanted:Qty: 1 on 05/17/2022 by Julian Carter MD at [facility] N/A: Abdomen [employer] 02/05/2027 [id number] / / [id number] Description:6 clips used Insurance Yours Florally OOS Member Subscriber Plan / Payer (Ef fective 2019-Present) Name:Moira Stoner Relation to Subscriber:Self Name:Moira Stoner Payer ID:[id number] (NAIC) Type:[employer] Address: [facility] [id number] [address] [facility]ICE [facility] H[facility]/PPO Address: [address] [address] [place] [address] CIGNA OPEN ACCESS CIGNA OPEN ACCESS Care Teams Assistant General Manager Relationship Specialty Start Date End Date Iman Loera MD PCP - General 07/23/16
--- OUTSIDE RECORDS SUMMARY | 2024-09-29 11:51 | XMS_ITS | Encounter Summary ---
Author Organization [facility] Address [address] [place] [address] Care Team Providers Care Forest Fire Officer Name Role Phone Magnus Davenport MD Primary Care Provider [phone] Encounter Details Date Type Department Care Team (Late Contact Info) Description 07/10/2018 Lab Requisition [facility] General Laboratory Services S [facility]ly [facility] [address] [place] [address] [place] [phone] [facility] [address] [place] [address] Encounter for general adult medical examination without abnormal findings Social History Tobacco Use Types Packs/Day Years Used Date Smoking Tobacco: Never Assessed Comments Unknown Sex and Gender Information Value Date Recorded Sex Assigned at Not on file Legal Sex Female 1:14 PM HOGSHEAD PRESS OPERATOR Gender Identity Not on file Sexual Orientation Not on file documented as of this encounter Plan of Treatment Upcoming Encounters Date Type Department Care Team (Late Contact Info) Description 11/12/2024 9:00 AM CDT Office Visit [facility] Primary Care [address] [place] [address] Magnus Davenport MD [address] [place] [address] [address] [place] [address] documented as of this encounter Procedures Procedure Name Priority Date/Time Associated Diagnosis Comments HEPATITIS B SURFACE AB, QUANT Routine 07/10/2018 10:32 AM CDT Encounter for general adult medical examination without abnormal findings documented in this encounter Results * (ABNORMAL) HEPATITIS B SURFACE AB, QUANT (07/10/2018 10:32 AM CDT) HEPATITIS B SURF AB,QN <4.0 mlU/mL 07/10/2018 8:50 PM CDT [facility] HEPATITIS B SURFACE AB INTERP Non-reacti ve(A) See Interp 07/10/2018 8:50 PM CDT [facility] Blood Collection / Unknown 07/10/2018 10:32 AM CDT 07/10/2018 4:03 PM CDT Narrative [facility] - 07/10/2018 8:50 PM CDT Patient does not have immunity to Hepatitis B virus. This assay is used to determine immune status to Hepatitis B as greater than or equal to 10 mIU/mL as per CDC guidelines (MMWR:vol 55: RR-16, 2006). Luis Marshall MD CHEMISTRY ORDERABLES Final R esult [facility] CLIA# [id number] [address] [facility] [place] [address] documented in this encounter Visit Diagnoses Diagnosis Encounter for general adult medical examination without abnormal findings Routine general medical examination at a health care facility documented in this encounter Additional Health Concerns Infection Onset Date Last Indicated Resolved Time R/O COVID-19 10/15/2019 10/15/2019 10/17/2019 1:31 AM CDT R/O COVID-19 01/11/2020 01/11/2020 01/13/2020 3:55 AM HOGSHEAD PRESS OPERATOR COVID-19 01/11/2020 01/11/2020 02/10/2020 1:16 AM HOGSHEAD PRESS OPERATOR documented as of this encounter Care Teams Forest Fire Officer Relationship Specialty Start Date End Date Magnus Davenport MD [address] [place] [phone] PCP - General Internal Medicine 03/07/23 documented as of this encounter
--- OUTSIDE RECORDS SUMMARY | 2024-09-29 11:51 | XMS_ITS | Encounter Summary ---
Author Organization [facility] Address [address] [place] [address] Care Team Providers Care Brick Extruder Operator Name Role Phone Magnus Davenport MD Primary Care Provider [phone] Encounter Details Date Type Department Care Team (Late Contact Info) Description 09/28/2024 External Device Data [facility] ABSTRACTION Provider, Abstract NO ADDRESS ON FILE Social History Tobacco Use Types Packs/Day Years Used Date Smoking Tobacco: Never Passive Smoke Exposure: Never Smokeless Tobacco: Never Alcohol Use Standard Drinks/Week Comments Yes 4 (1 standard drink = 0.6 oz pur e alcohol) social Comments No Sex and Gender Information Value Date Recorded Sex Assigned at Not on file Legal Sex Female 1:14 PM MUSEUM EXHIBIT TECHNICIAN Gender Identity Not on file Sexual Orientation Not on file documented as of this encounter Plan of Treatment Upcoming Encounters Date Type Department Care Team ([facility] Contact Info) Description 11/12/2024 9:00 AM CDT Office Visit [facility] Primary Care [address] [address] Magnus Davenport MD [address] [place] [phone] documented as of this encounter Visit Diagnoses Not on filedocumented in this encounter Care Teams Brick Extruder Operator Relationship Specialty Start Date End Date Magnus Davenport MD [address] [place] [phone] PCP - General Internal Medicine 03/07/23 documented as of this encounter
--- OUTSIDE RECORDS SUMMARY | 2024-09-29 11:51 | XMS_ITS | Clinical Summary ---
Author Organization [facility] Address [address] [place] [address] Phone Care Team Providers Care Clinic Office Manager Name Role Phone Jael Flynn APRN, DRIVER GUIDE Unavailable [phone] Allergies No known active allergies Medications pantoprazole [...] Comments Blood Pressure 124/82 02/21/2022 8:49 AM GRE INSTRUCTOR Pulse 93 02/21/2022 8:49 AM GRE INSTRUCTOR Temperature 36.3 C (97.4 F) 02/21/2022 8:49 AM GRE INSTRUCTOR Respiratory Rate 16 02/21/2022 8:49 AM GRE INSTRUCTOR Oxygen Saturation 98% 02/21/2022 8:49 AM GRE INSTRUCTOR Inhaled Oxygen Concentration - - Weight 105.1 kg (231 lb 11.2 oz) 02/21/2022 8:49 AM GRE INSTRUCTOR Height 165.1 cm (5' 5) 02/21/2022 8:49 AM GRE INSTRUCTOR Body Mass Index 38.56 02/21/2022 8:49 AM GRE INSTRUCTOR Plan of Treatment Health Maintenance Due Date Last Done Comments Hepatitis C Virus (HCV) Screening 1992 Hepatitis B Immunization (1 of 3 - 19+ 3-dose series) 11/25/2011 Human Papillomavirus (HPV) Immunization (1 - 3-dose SCDM series) 11/25/2019 Pap Smear 06/04/2021 06/04/2018 Cervical Cancer Screening (CCS) 2022 HPV/Cotest 2022 SARS-COV-2 Immunization ( season) 2023 12/12/2021, 08/20/2021, 06/19/2020, Additional history exists Influenza Immunization (#1) 2024 100 06/2020, 12/21/2019, 11/25/2018, Additional history exists Respiratory Syncytial [...] Priority Date/Time Associated Diagnosis Comments PATHOLOGY CYTOLOGY MEDIA MONITOR Routine 06/04/2018 from Last 3 Months or Most Recently Relevant to Health Maintenance Results * PATHOLOGY CYTOLOGY MEDIA MONITOR (06/04/2018) Other Jael Flynn APRN, CNP PATHOLOGY/CYTOLOGY ORDER VALDEMAR Final Result from Last 3 Months or Most Recently Relevant to Health Maintenance Insurance [employer] Care Teams Clinic Office Manager Relationship Specialty Start Date End Date Jael Flynn APRN, CNP [address] [place] [id number] Nurse Practitioner Obstetrics & Gynecology 04/04/20
--- OUTSIDE RECORDS SUMMARY | 2024-09-29 11:51 | XMS_ITS | Clinical Summary ---
Author Organization [facility] Address [address] [place] [address] Phone Care Team Providers Care Check And Transfer Beader Name Role Phone Magnus Davenport MD Primary Care Provider [phone] Medications cetirizine (ZyrTEC) 10 mg tablet Take [...] Encounters Date Type Department Care Team Description 09/28/2024 External Device Data [facility] ABSTRACTION Provider, Abstract 09/08/2024 External Device Data [facility] ABSTRACTION Provider, Abstract 09/08/2024 External Device Data [facility] ABSTRACTION Provider, Abstract 08/24/2024 External Device Data [facility] ABSTRACTION Provider, Abstract from Last 3 Months Immunizations Immunization Administration Dates Next Due (ADACEL/BOOSTRIX)(10 YR UP) TDAP VACCINE, 0.5ML, IM 04/20/2021 INFLUENZA VACCINE QUADRIVALE NT 6 MOS UP PF IM 11/28/2020 Influenza Seasonal Unspecifi ed Formulation IM 12/27/2022,12/21/2019,11/25/2018 Skin Test TB 12/21/2019, 9,09/12/2015,2015 Family History Relation Name Status Comments Father [...] on file Legal Sex Female 1:14 PM CARE PROGRAM RESIDENT Gender Identity Not on file Sexual Orientation Not on file Last Filed Vital Signs Vital Sign Reading Time Taken Comments Blood Pressure 120/80 11/07/2023 10:14 AM CDT Pulse 100 11/07/2023 10:14 AM CDT Temperature 36.2 C (97.1 F) 03/07/2023 9:53 AM CARE PROGRAM RESIDENT Respiratory Rate 17 03/07/2023 9:53 AM CARE PROGRAM RESIDENT Oxygen Saturation 96% 11/07/2023 10:14 AM CDT Inhaled Oxygen Concentration - - Weight 88.5 kg (195 lb) 11/07/2023 10:14 AM CDT Height 162.6 cm (5' 4) 11/07/2023 10:14 AM CDT Body Mass Index 33.47 11/07/2023 10:14 AM CDT Plan of Treatment Upcoming Encounters Date Type Department Care Team (Late st Contact Info) Description 11/12/2024 9:00 AM CDT Office Visit [facility] Primary Care [address] [place] [phone] Magnus Davenport MD [address] [place] [address] [address] [place] [phone] Health Maintenance Due Date Last Done Comments HPV VACCINES (1 - 3-dose series) 11/25/2007 HEPATITIS B VACCINES (1 of 3 - 19+ 3-dose series) 11/25/2011 HPV/Cotest (21-29) 2013 CERVICAL CANCER SCREENING 2022 HPV/Cotest (30-65) 2022 PAP SMEAR 2022 06/04/2018 Preventative Visit- Commercial 02/25/2024 03/07/2023 INFLUENZA VACCINE (#1) 2024 4, 12/27/2022, 11/28/2020, Additional history exists DTAP/TDAP/TD VACCINES (2 - T d or Tdap) 04/20/2031 04/20/2021 Insurance OPEN ACCESS HMO Care Teams Check And Transfer Beader Relationship Specialty Start Date End Date Magnus Davenport MD [address] [place] [phone] PCP - General Internal Medicine 03/07/23
[2024-09-29 12:23] LABS: Syphilis IgG/IgM Antibody Non-Reactive (Nonreactive)
[2024-09-29 12:35] LABS: HIV 1/2 Ab P24 Ag Result Negative (Negative)
== END 2024-09-29 11:10 | disposition home or self-care (01) ==
LOC: ANHLAB 11:10
PROVIDERS: PCP Internal Medicine; Visit Provider Obstetrics & Gynecology
DX: Z34.90 Encounter for supervision of normal pregnancy, unspecified, unspecified trimester (principal)
CPT/HCPCS: 36415; 85027; 86593; 86703; G0432

== ENCOUNTER 2024-10-29 10:51 | Outpatient (CLI) | payer OTHER, SELFPAY ==
--- NOTE | ~2024-10-29 | US_ITS ---
EXAMINATION: US OB follow up DATE: 10/29/2024 11:10 INDICATION: -induced/gestational hypertension during third trimester . TECHNIQUE: Real-time ultrasound of the pelvis was performed. The interpreting radiologist was not present for the study. COMPARISON: None. FINDINGS: There is a single living fetus in vertex presentation. The placenta is anterior and not low-lying. heart rate is 139 beats per minute (bpm). The amniotic fluid index is 14.8 cm, which is normal (5th%-95%: 7.7-24.9 cm at 36 weeks estimated gestational age). The following biometric data were obtained: BPD: 9.2 cm -> 37 weeks 1 days Head circumference: 33.2 cm -> 37 weeks 6 days Abdominal circumference: 35.7 cm -> 39 weeks 4 days Femur length: 7.3 cm -> 37 weeks 2 days These measurements are concordant. Head circumference to abdominal circumference ratio: 0.93 (normal range 0.90-1.06). Estimated weight: 3537 g (+/-) 531 g or 7 lbs. 13 oz. (+/-) 1 lb. 3 oz. IMPRESSION: 1. Single living fetus in vertex presentation with heart rate of 139 bpm. 2. Normal amniotic fluid index of 14.8 cm. 3. Estimated weight is 95th percentile by Hadlock criteria when 11/22/2024 is used as the estimated date of delivery (CHARBEL). Please correlate with clinical information or earlier ultrasounds for most accurate CHARBEL. Reviewed, dictated and finalized at location A. IMPRESSION: 1. Single living fetus in vertex presentation with heart rate of 139 bpm. 2. Normal amniotic fluid index of 14.8 cm. 3. Estimated weight is 95th percentile by Hadlock criteria when 11/22/2024 is used as the estimated date of delivery (CHARBEL). Please correlate with clinica l information or earlier ultrasounds for most accurate CHARBEL.
== END 2024-10-29 10:52 | disposition home or self-care (01) ==
LOC: MICIMG 10:52
PROVIDERS: PCP Obstetrics & Gynecology; Visit Provider Obstetrics & Gynecology
DX: O13.9 Gestational [pregnancy-induced] hypertension without significant proteinuria, unspecified trimester (principal); Z3A.00 Weeks of gestation of pregnancy not specified
CPT/HCPCS: 76816

== ENCOUNTER 2024-11-03 10:05 | Outpatient (CLI) | payer OTHER, SELFPAY ==
[2024-11-03 11:31] LABS: OBXCEM ROM Plus Negative (Negative)
--- OUTSIDE RECORDS SUMMARY | 2024-11-03 11:38 | XMS_ITS | Clinical Summary ---
Author Organization [facility] Address [address] [place] [address] Care Team Providers Care Digital Asset Manager Name Role Phone Iman Loera MD Primary Care Provider [phone] Allergies Active Allergy Reactions Criticality Noted Date Comments Fentanyl Nausea only Low 05/17/2022 Medications docusate sodium (Colace) 100 mg capsuleIndicati ons:constipatio n Take 1 capsule (100 mg total) by mouth 2 (two) times a day for 14 days 28 capsule 2 05/17/2022 Active Active Problems Problem Noted Date Diagnosed Date S/P laparoscopic cholecystectomy 05/24/2022 Discharge from [facility] 07/23/2016 Resolved Problems Problem Noted Date Diagnosed Date Resolved Date Symptomatic cholelithiasis 03/30/2022 0 05/24/2022 Overview (03/30/2022): Added automatically from request for surgery [id number] Chronic cholecystitis 03/28/20222022 Assessment & Plan (03/28/2022 8:52 AM VISITOR SERVICES SPECIALIST): We will set the patient up [...] 03/30/2022 Added automatically from request for surgery [id number] Family History Medical History Relation Name Comments [...] on file Legal Sex Female 11:48 AM VISITOR SERVICES SPECIALIST Gender Identity Female 03/23/2022 7:34 AM VISITOR SERVICES SPECIALIST Sexual Orientation Not on file Obstetrics [...] this topic Medical Devices Implanted Type Area Wheat Washer Device Identifier Shelf Expiration Date Model / Serial / Lot Comply365 Weck Hem-O-Benton Ligate Nonabsorbable Cartridge Medium Large Latex Free [id number] - [id number] Implanted:Qty: 1 on 05/17/2022 by Julian Carter MD at [facility] N/A: Abdomen [employer] 02/05/2027 [id number] / / [id number] Description:6 clips used Insurance [employer] OOS Member Subscriber Plan / Payer (Ef fective 2019-Present) Name:Moira Stoner Relation to Subscriber:Self Name:Moira Stoner Payer ID:[id number] (NAIC) Type:[id number] Learning Address: [facility] [id number] CHOICE PLUS CIGNA OPEN ACCESS CIGNA OPEN ACCESS Care Teams Digital Asset Manager Relationship Specialty Start Date End Date Iman Loera MD PCP - General 07/23/16
--- OUTSIDE RECORDS SUMMARY | 2024-11-03 11:38 | XMS_ITS | Clinical Summary ---
Author Organization [facility] Address [address] [place] [address] Phone Care Team Providers Care Detective Bowling Alley Name Role Phone Jael Flynn APRN, QUANTITATIVE DEVELOPER Unavailable [phone] Allergies No known active allergies Medications pantoprazole [...] Comments Blood Pressure 124/82 02/21/2022 8:49 AM MANAGER DOMESTIC Pulse 93 02/21/2022 8:49 AM MANAGER DOMESTIC Temperature 36.3 C (97.4 F) 02/21/2022 8:49 AM MANAGER DOMESTIC Respiratory Rate 16 02/21/2022 8:49 AM MANAGER DOMESTIC Oxygen Saturation 98% 02/21/2022 8:49 AM MANAGER DOMESTIC Inhaled Oxygen Concentration - - Weight 105.1 kg (231 lb 11.2 oz) 02/21/2022 8:49 AM MANAGER DOMESTIC Height 165.1 cm (5' 5) 02/21/2022 8:49 AM MANAGER DOMESTIC Body Mass Index 38.56 02/21/2022 8:49 AM MANAGER DOMESTIC Plan of Treatment Health Maintenance Due Date Last Done Comments Hepatitis C Virus (HCV) Screening 1992 Hepatitis B Immunization (1 of 3 - 19+ 3-dose series) 11/25/2011 Human Papillomavirus (HPV) Immunization (1 - 3-dose SCDM series) 11/25/2019 Pap Smear 06/04/2021 06/04/2018 Cervical Cancer Screening (CCS) 2022 HPV/Cotest 2022 Influenza Immunization (#1) 2024 100 06/2020, 12/21/2019, 11/25/2018, Additional history exists SARS-COV-2 Immunization ( season) 2024 12/12/2021, 08/20/2021, 06/19/2020, Additional history exists Respiratory Syncytial Virus (RSV) [...] Priority Date/Time Associated Diagnosis Comments PATHOLOGY CYTOLOGY WAREHOUSE AND RECEIVING SUPERVISOR Routine 06/04/2018 from Last 3 Months or Most Recently Relevant to Health Maintenance Results * PATHOLOGY CYTOLOGY WAREHOUSE AND RECEIVING SUPERVISOR (06/04/2018) Other Jael Flynn APRN, CNP PATHOLOGY/CYTOLOGY ORDER VALDEMAR Final Result from Last 3 Months or Most Recently Relevant to Health Maintenance Insurance CIG[employer] Care Teams Detective Bowling Alley Relationship Specialty Start Date End Date Jael Flynn APRN, CNP [address] [place] [id number] Nurse Practitioner Obstetrics & Gynecology 04/04/20
--- OUTSIDE RECORDS SUMMARY | 2024-11-03 11:38 | XMS_ITS | Clinical Summary ---
Author Organization [facility] Address [address] [place] [address] Phone Care Team Providers Care Channel Specialist Name Role Phone Magnus Davenport MD Primary Care Provider [phone] Medications cetirizine (ZyrTEC) 10 mg tablet Take [...] Encounters Date Type Department Care Team Description 09/29/2024 External Device Data STL ABSTRACTION Provider, Abstract 09/28/2024 External Device Data STL ABSTRACTION Provider, [...] on file Legal Sex Female 1:14 PM CRATE TIER Gender Identity Not on file Sexual Orientation Not on file Last Filed Vital Signs Vital Sign Reading Time Taken Comments Blood Pressure 120/80 11/07/2023 10:14 AM CDT Pulse 100 11/07/2023 10:14 AM CDT Temperature 36.2 C (97.1 F) 03/07/2023 9:53 AM CRATE TIER Respiratory Rate 17 03/07/2023 9:53 AM CRATE TIER Oxygen Saturation 96% 11/07/2023 10:14 AM CDT Inhaled Oxygen Concentration - - Weight 88.5 kg (195 lb) 11/07/2023 10:14 AM CDT Height 162.6 cm (5' 4) 11/07/2023 10:14 AM CDT Body Mass Index 33.47 11/07/2023 10:14 AM CDT Plan of Treatment Upcoming Encounters Date Type Department Care Team (Late st Contact Info) Description 11/12/2024 9:00 AM CDT Office Visit [facility] Care [address] [place] [address] Magnus Davenport MD [address] [place] [address] [address] [place] [address] Health Maintenance Due Date Last Done Comments HEPATITIS B VACCINES (1 of 3 - 19+ 3-dose series) 11/25/2011 HPV/Cotest (21-29) 2013 HPV VACCINES (1 - 3-dose SCD M series) 11/25/2019 CERVICAL CANCER SCREENING 2022 HPV/Cotest (30-65) 2022 PAP SMEAR 2022 06/04/2018 Preventative Visit- Commercial 02/25/2024 03/07/2023 INFLUENZA VACCINE (#1) 2024 4, 12/27/2022, 11/28/2020, Additional history exists DTAP/TDAP/TD VACCINES (2 - T d or Tdap) 04/20/2031 04/20/2021 Insurance OPEN ACCESS HMO Care Teams Channel Specialist Relationship Specialty Start Date End Date Magnus Davenport MD [address] [place] [phone] PCP - General Internal Medicine 03/07/23
--- OUTSIDE RECORDS SUMMARY | 2024-11-03 11:38 | XMS_ITS | Encounter Summary ---
Author Organization [facility] Address [address] [place] [address] Care Team Providers Care Power Wood Sawyer Name Role Phone Magnus Davenport MD Primary Care Provider [phone] Encounter Details Date Type Department Care Team (Late Contact Info) Description 07/10/2018 Lab Requisition [facility] Laboratory Services [facility] [address] [place] [address] [place] [address] [facility] [address] [place] [address] Encounter for general adult medical examination without abnormal findings Social History Tobacco Use Types Packs/Day Years Used Date Smoking Tobacco: Never Assessed Comments Unknown Sex and Gender Information Value Date Recorded Sex Assigned at Not on file Legal Sex Female 1:14 PM FUNCTIONAL TESTER Gender Identity Not on file Sexual Orientation Not on file documented as of this encounter Plan of Treatment Upcoming Encounters Date Type Department Care Team (Late Contact Info) Description 11/12/2024 9:00 AM CDT Office Visit [facility] Primary Care [address] [place] [address] Magnus Davenport MD [address] [place] [address] [address] [place] [address] documented as of this encounter Procedures Procedure Name Priority Date/Time Associated Diagnosis Comments HEPATITIS B SURFACE AB, QUANT Routine 07/10/2018 10:32 AM CDT Encounter for general adult medical examination without abnormal findings documented in this encounter Results * (ABNORMAL) HEPATITIS B SURFACE AB, QUANT (07/10/2018 10:32 AM CDT) HEPATITIS B SURF AB,QN <4.0 mlU/mL 07/10/2018 8:50 PM CDT [facility] HEPATITIS B SURFACE AB INTERP Non-reacti ve(A) See Interp 07/10/2018 8:50 PM CDT [facility] Blood Collection / Unknown 07/10/2018 10:32 AM CDT 07/10/2018 4:03 PM CDT Narrative [facility] - 07/10/2018 8:50 PM CDT Patient does not have immunity to Hepatitis B virus. This assay is used to determine immune status to Hepatitis B as greater than or equal to 10 mIU/mL as per CDC guidelines (MMWR:vol 55: RR-16, 2006). Luis Marshall MD CHEMISTRY ORDERABLES Final R esult [facility] CLIA# [id number] [address] [facility] [place] [address] documented in this encounter Visit Diagnoses Diagnosis Encounter for general adult medical examination without abnormal findings Routine general medical examination at a health care facility documented in this encounter Additional Health Concerns Infection Onset Date Last Indicated Resolved Time R/O COVID-19 10/15/2019 10/15/2019 10/17/2019 1:31 AM CDT R/O COVID-19 01/11/2020 01/11/2020 01/13/2020 3:55 AM FUNCTIONAL TESTER COVID-19 01/11/2020 01/11/2020 02/10/2020 1:16 AM FUNCTIONAL TESTER documented as of this encounter Care Teams Power Wood Sawyer Relationship Specialty Start Date End Date Magnus Davenport MD [address] [place] [phone] PCP - General Internal Medicine 03/07/23 documented as of this encounter
== END 2024-11-03 11:30 | disposition home or self-care (01) ==
LOC: ANHOBOP 10:43 → ANHLDR 10:48
PROVIDERS: PCP Internal Medicine; Visit Provider Obstetrics & Gynecology
DX: O42.90 Premature rupture of membranes, unspecified as to length of time between rupture and onset of labor, unspecified weeks of gestation (principal); Z3A.00 Weeks of gestation of pregnancy not specified
CPT/HCPCS: 59025; 84112; 99199

== ENCOUNTER 2024-11-07 06:53 | Observation (INO) | payer OTHER, SELFPAY ==
[2024-11-07] VITALS (32 sets, daily range): BP systolic 123–151; BP diastolic 76–88; PULSE 83–120; TEMP 36.4; O2SAT 96–100; BMI 41.6
--- NOTE | 2024-11-07 09:10 | OBADM ---
This patient, Moira Stoner, admitted to the OB room Labor/Delivery/Recovery 105 for observation. Patient/family oriented to hospital policies and general routines including ID bracelet, bed and alarms, visiting hours, pain management, procedures, bathroom and other care routines, personal items, smoking policy, room service/diet, and visiting hours. Patient/Family are encouraged to report perceived risks to care and to ask questions if they do not understand what they are told or what they should do.
--- NOTE | 2024-11-08 13:59 | PM.OBTRLD ---
OB - Triage/Final Diagnosis Visit Information Date of evaluation: 11/07/24 Reason for evaluation: threatened labor Comments/Additional reasons for admission: I have assessed the risk for this patient, Moira Stoner, and determined that she would benefit from observation care.
== END 2024-11-07 09:20 | disposition home or self-care (01) ==
PROVIDERS: Admitting Provider Student in an Organized Health Care Education/Training Program; PCP Internal Medicine; Visit Provider Student in an Organized Health Care Education/Training Program
DX: O47.1 False labor at or after 37 completed weeks of gestation (principal); Z3A.37 37 weeks gestation of pregnancy
CPT/HCPCS: G0378; G0379

== ENCOUNTER 2024-11-15 15:57 | Inpatient (IN) | payer OTHER, SELFPAY ==
[2024-11-15] VITALS (7 sets, daily range): BP systolic 122–142; BP diastolic 70–90; PULSE 75–121; BMI 41.8
--- OUTSIDE RECORDS SUMMARY | 2024-11-15 16:02 | XMS_ITS | Clinical Summary ---
Author Organization [facility] Address [address] [place] [address] Phone Care Team Providers Care Coal Hiker Name Role Phone Magnus Davenport MD Primary Care Provider [phone] Medications cetirizine (ZyrTEC) 10 mg tablet Take [...] on file Legal Sex Female 1:14 PM PROJECT CONTROLLER Gender Identity Not on file Sexual Orientation Not on file Last Filed Vital Signs Vital Sign Reading Time Taken Comments Blood Pressure 120/80 11/07/2023 10:14 AM CDT Pulse 100 11/07/2023 10:14 AM CDT Temperature 36.2 C (97.1 F) 03/07/2023 9:53 AM PROJECT CONTROLLER Respiratory Rate 17 03/07/2023 9:53 AM PROJECT CONTROLLER Oxygen Saturation 96% 11/07/2023 10:14 AM CDT Inhaled Oxygen Concentration - - Weight 88.5 kg (195 lb) 11/07/2023 10:14 AM CDT Height 162.6 cm (5' 4) 11/07/2023 10:14 AM CDT Body Mass Index 33.47 11/07/2023 10:14 AM CDT Plan of Treatment Upcoming Encounters Date Type Department Care Team (Late st Contact Info) Description 03/01/2025 3:20 PM PROJECT CONTROLLER Office Visit [facility] Care [address] [place] [address] Magnus Davenport MD [address] [place] [address] [address] [place] [address] Health Maintenance Due Date Last [...] or Tdap) 04/20/2031 04/20/2021 Insurance OPEN ACCESS O Care Teams Coal Hiker Relationship Specialty Start Date End Date Magnus Davenport MD [address] [place] [phone] PCP - General Internal Medicine 03/07/23
--- OUTSIDE RECORDS SUMMARY | 2024-11-15 16:02 | XMS_ITS | Encounter Summary ---
Author Organization [facility] Address [address] [place] [address] Care Team Providers Care Tour Bus Driver Name Role Phone Magnus Davenport MD Primary Care Provider [phone] Encounter Details Date Type Department Care Team (Late Contact Info) Description 07/10/2018 Lab Requisition [facility] Laboratory Services [facility] [address] [place] [address] [place] [address] [facility] [address] [place] [address] Encounter for general adult medical examination without abnormal findings Social History Tobacco Use Types Packs/Day Years Used Date Smoking Tobacco: Never Assessed Comments Unknown Sex and Gender Information Value Date Recorded Sex Assigned at Not on file Legal Sex Female 1:14 PM WORK MANAGER Gender Identity Not on file Sexual Orientation Not on file documented as of this encounter Plan of Treatment Upcoming Encounters Date Type Department Care Team (Late Contact Info) Description 03/01/2025 3:20 PM WORK MANAGER Office Visit [facility] Primary Care [address] [place] [address] Magnus Davenport MD [address] [place] [address] [address] [place] [address] documented as of this encounter Procedures Procedure Name Priority Date/Time Associated Diagnosis Comments HEPATITIS B SURFACE AB, QUANT Routine 07/10/2018 10:32 AM CDT Encounter for general adult medical examination without abnormal findings documented in this encounter Results * (ABNORMAL) HEPATITIS B SURFACE AB, QUANT (07/10/2018 10:32 AM CDT) HEPATITIS B SURF AB,QN <4.0 mlU/mL 07/10/2018 8:50 PM CDT [facility] HEPATITIS B SURFACE AB INTERP Non-reacti ve(A) See Interp 07/10/2018 8:50 PM CDT [facility] Blood Collection / Unknown 07/10/2018 10:32 AM CDT 07/10/2018 4:03 PM CDT Narrative [facility] - 07/10/2018 8:50 PM CDT Patient does not have immunity to Hepatitis B virus. This assay is used to determine immune status to Hepatitis B as greater than or equal to 10 mIU/mL as per CDC guidelines (MMWR:vol 55: RR-16, 2006). Luis Marshall MD CHEMISTRY ORDERABLES Final R esult [facility] CLIA# [id number] [address] [facility] [address] documented in this encounter Visit Diagnoses Diagnosis Encounter for general adult medical examination without abnormal findings Routine general medical examination at a health care facility documented in this encounter Additional Health Concerns Infection Onset Date Last Indicated Resolved Time R/O COVID-19 10/15/2019 10/15/2019 10/17/2019 1:31 AM CDT R/O COVID-19 01/11/2020 01/11/2020 01/13/2020 3:55 AM WORK MANAGER COVID-19 01/11/2020 01/11/2020 02/10/2020 1:16 AM WORK MANAGER documented as of this encounter Care Teams Tour Bus Driver Relationship Specialty Start Date End Date Magnus Davenport MD [address] [place] [phone] PCP - General Internal Medicine 03/07/23 documented as of this encounter
--- OUTSIDE RECORDS SUMMARY | 2024-11-15 16:02 | XMS_ITS | Clinical Summary ---
Author Organization [facility] Address [address] [place] [address] Care Team Providers Care Bibliographic Services Specialist Name Role Phone Iman Loera MD Primary [...] Date S/P laparoscopic cholecystectomy 05/24/2022 Discharge from [facility] 07/23/2016 Resolved Problems Problem Noted Date Diagnosed Date Resolved Date Symptomatic cholelithiasis 03/30/2022 0 05/24/2022 Overview (03/30/2022): Added automatically from request for surgery [id number] Chronic cholecystitis 03/28/20222022 Assessment & Plan (03/28/2022 8:52 AM RESEARCH COMPLIANCE SPECIALIST): We will set the patient up [...] 03/30/2022 Added automatically from request for surgery [id number] Family History Medical History Relation Name Comments [...] on file Legal Sex Female 11:48 AM RESEARCH COMPLIANCE SPECIALIST Gender Identity Female 03/23/2022 7:34 AM RESEARCH COMPLIANCE SPECIALIST Sexual Orientation Not on file Obstetrics [...] 3-dose SCD M series) 11/25/2019 Covid-19 Vaccine (2024-2 6 season) 2024 08/20/2021, 06/19/2020, 05/08/2020 Influenza Vaccine (#1) 2024 , 12/21/2019, 11/25/2018 DTaP/Tdap/Td Vaccine (2 - Td or Tdap) 04/20/2031 04/20/2021 Pneumococcal vaccine <65 Aged Out No longer eligible based on patient's age to complete this topic Medical Devices Implanted Type Area Inserting Operator Device Identifier Shelf Expiration Date Model / Serial / Lot Inductly Weck Hem-O-Benton Ligate Nonabsorbable Cartridge Medium Large Latex Free [id number] - [id number] Implanted:Qty: 1 on 05/17/2022 by Julian Carter MD at [facility] N/A: Abdomen [employer] 02/05/2027 [id number] / / [id number] Description:6 clips used Insurance [employer] OOS Member Subscriber Plan / Payer (Ef fective 2019-Present) Name:Moira Stoner Relation to Subscriber:Self Name:Moira Stoner Payer ID:[id number] (NAIC) Type:[employer] [place] Address: [facility] [id number] [facility] H[facility]/PPO Address: [address] [address] [place] [address] CIGNA OPEN ACCESS CIGNA OPEN ACCESS Care Teams Bibliographic Services Specialist Relationship Specialty Start Date End Date Iman Loera MD PCP - General 07/23/16
--- OUTSIDE RECORDS SUMMARY | 2024-11-15 16:03 | XMS_ITS | Clinical Summary ---
Author Organization [facility] Address [address] [place] [address] Phone Care Team Providers Care Shipper Receiver Name Role Phone Jael Flynn APRN, DIVISION MERCHANDISE MANAGER Unavailable [phone] Allergies No known active allergies Medications pantoprazole [...] Comments Blood Pressure 124/82 02/21/2022 8:49 AM TUBE PULLER Pulse 93 02/21/2022 8:49 AM TUBE PULLER Temperature 36.3 C (97.4 F) 02/21/2022 8:49 AM TUBE PULLER Respiratory Rate 16 02/21/2022 8:49 AM TUBE PULLER Oxygen Saturation 98% 02/21/2022 8:49 AM TUBE PULLER Inhaled Oxygen Concentration - - Weight 105.1 kg (231 lb 11.2 oz) 02/21/2022 8:49 AM TUBE PULLER Height 165.1 cm (5' 5) 02/21/2022 8:49 AM TUBE PULLER Body Mass Index 38.56 02/21/2022 8:49 AM TUBE PULLER Plan of Treatment Health Maintenance Due Date [...] Priority Date/Time Associated Diagnosis Comments PATHOLOGY CYTOLOGY VARNISH MAKER Routine 06/04/2018 from Last 3 Months or Most Recently Relevant to Health Maintenance Results * PATHOLOGY CYTOLOGY VARNISH MAKER (06/04/2018) Other Jael Flynn APRN, CNP PATHOLOGY/CYTOLOGY ORDER VALDEMAR Final Result from Last 3 Months or Most Recently Relevant to Health Maintenance Insurance [employer] Care Teams Shipper Receiver Relationship Specialty Start Date End Date Jael Flynn APRN, CNP [address] [place] [id number] Nurse Practitioner Obstetrics & Gynecology 04/04/20
--- NOTE | 2024-11-15 16:39 | P.PNAN_ITS ---
Anes - Eval Pre Procedure Procedure: labor epidural Date/Time: 11/15/24 16:39 Surgeon: katharine Preop Diagnosis: pain during labor Pre Op Diagnosis: iol Patient Data Age: 33 Gender: F Height: Weight: Last Vital Signs Pulse 86 11/15/24 16:30 BP 123/78 11/15/24 16:30 Allergies Allergy/AdvReac Type Severity Reaction Status Date / Time No Known Allergies Allergy Verified 11/11/24 11:01 Home Medications ?Medication ?Instructions ?Recorded ?Confirmed ?Type prenat.vits,jorge,wgo-jnrj-dtoub 1 tablet PO DAILY 06/0811/11/24 History cetirizine 10 mg capsule (Zyrtec) 10 mg PO DAILY PRN a llergy symptoms 09/01/24 11/11/24 History famotidine 20 mg tablet (Pepcid) 20 mg PO DAILY 11/11/24 History Patient hx anesthesia problems: none Family hx anesthesia problems: none Results Review: All pre-operative results and documents have been reviewed as part of the pre- operative evaluation. [facility], [facility] Surgical History Surgical History History of cholecystectomy Blue Eye teeth removed Family History Family History Grandparent High cholesterol Hypertension Grandparent Diabetes mellitus Leukemia Mother Fibromyalgia Breast cancer Social History Social History Smoking status: Never smoker Second hand tobacco smoke exposure: No Substance use: never Lack of Transportation: No Lack of Food: Never True Current Housing: I Have Housing Concerned About Future Housing: No Difficulty Paying Gas/Electric Bills: No Difficulty Paying for Meds: No Currently Unemployed: No Education: Associate Degree Difficulty w/ Childcare or Family Care: No Spiritual care concerns: No Exam Day of Procedure 11/15/24 16:39
[2024-11-15 17:07] LABS: Hematocrit 32.0 % (37.0-47.0); Hemoglobin 10.7 g/dL (12.0-15.0); Immature Granulocyte Percent A 0.4 % (0-0.5); Lymphocytes Absolute Auto 1.15 K/mm3 (0.9-3.2); Mean Corpuscular HGB Conc 33.4 g/dl (32-36); Mean Corpuscular Hemoglobin 27.9 pg (26-34); Mean Corpuscular Volume 83.3 fl (80-100); Nucleated Red Blood Cells Absolute Auto 0.000 K/mm3 (0.0-0.012); Nucleated Red Blood Cells Perc 0.0 % (0.0-0.2); Platelet Count Result 238 k/mm3 (150-375); Red Blood Count 3.84 M/mm3 (4.2-5.4); White Blood Count 4.9 K/mm3 (4.5-10.0)
[2024-11-15] MEDS: DINOPROSTONE 10 MG VAG INSERT VAGINAL (17:07)
--- NOTE | 2024-11-15 17:17 | LDADM ---
This patient, Moira Stoner, was admitted to Labor/Delivery/Recovery 105 on 11/15/24 at 15:57. Plans for labor, pain management and were discussed with patient. Patient/family oriented to hospital policies and general routines including ID bracelet, bed and alarms, visiting hours, pain management, procedures, bathroom and other care routines, personal items, smoking policy, room service/diet and guest tray routines, security routines, and visiting hours. Patient/Family are encouraged to report perceived risks to care and to ask questions if they do not understand what they are told or what they should do. See OBIX for further documentation.
[2024-11-15 17:47] LABS: Syphilis IgG/IgM Antibody Non-Reactive (Nonreactive)
[2024-11-16] VITALS (124 sets, daily range): BP systolic 90–212; BP diastolic 29–182; PULSE 81–288; RESP 16–20; TEMP 36.6–37; O2SAT 90–100
[2024-11-16] MEDS: CALCIUM CARBONATE (TUMS) 500 MG (200 MG ELEMENTAL) PO (01:15)
[2024-11-16] MEDS: LACTATED RINGERS 1,000 ML 125 ML IV CONT ×2 (06:24→09:50)
[2024-11-16] MEDS: OXYTOCIN 30 UNITS/NS 500 ML 30 UNITS/500 ML BAG IV CONT (06:30)
--- NOTE | 2024-11-16 09:21 | PM.IMHP ---
H&P: HPI History of Present Illness Date/Time: 11/16/24 08:40 Chief Complaint: Here for induction of labor. Narrative: 33 y/o at 39 1/7 weeks here for induction of labor. Cervidil overnight, has been withdrawn. Now receiving oxytocin. GBS neg. Feeling some contractions. Review of Systems Review of Systems: All systems reviewed & are unremarkable except as noted in HPI and below PMFSH Surgical History Surgical History History of cholecystectomy Caro teeth removed Family History Family History Grandparent High cholesterol Hypertension Grandparent Diabetes mellitus Leukemia Mother Fibromyalgia Breast cancer Social History Social History Smoking status: Never smoker Second hand tobacco smoke exposure: No Substance use: never Lack of Transportation: No Lack of Food: Never True Current Housing: I Have Housing Concerned About Future Housing: No Difficulty Paying Gas/Electric Bills: No Difficulty Paying for Meds: No Currently Unemployed: No Education: Associate Degree Difficulty w/ Childcare or Family Care: No Spiritual care concerns: No Meds Home Medications and Allergies Home Medications ?Medication ?Instructions ?Recorded ?Confirmed ?Type prenat.vits,jorge,ked-lykm-dpizz 1 tablet PO DAILY 06/08/21 11/11/24 History cetirizine 10 mg capsule (Zyrtec) 10 mg PO DAILY PRN allergy symptoms 09/01/24 11/11/24 History famotidine 20 mg tablet (Pepcid) 20 mg PO DAILY 10/26/24 11/11/24 History Allergies Allergy/AdvReac Type Severity Reaction Status Date / Time No Known Allergies Allergy Verified 11/11/24 11:01 Vital Signs Vital Signs - 24 hr 11/15/24 16:15 11/15/24 16:30 11/15/24 16:45 Temperature Pulse Rate 91 86 75 Blood Pressure 123/70 123/78 122/77 Pulse Oximetry Oxygen Delivery 11/15/24 17:17 11/15/24 18:01 11/15/24 19:00 Temperature Pulse Rate 84 87 Blood Pressure 135/72 135/73 Pulse Oximetry Oxygen Delivery Room Air 11/15/24 20:00 11/15/24 21:01 11/16/24 01:15 Temperature 97.9 F Pulse Rate 94 121 H 91 Blood Pressure 128/70 142/90 H 134/69 Pulse Oximetry Oxygen Delivery 11/16/24 02:00 11/16/24 06:33 11/16/24 06:38 Temperature Pulse Rate 81 92 Blood Pressure 119/59 L 116/68 Pulse Oximetry 94 96 Oxygen Delivery 11/16/24 06:43 11/16/24 06:48 11/16/24 06:53 Temperature Pulse Rate Blood Pressure Pulse Oximetry 98 97 96 Oxygen Delivery 11/16/24 06:58 11/16/24 07:00 11/16/24 07:03 Temperature 98 F Pulse Rate 88 Blood Pressure 120/71 Pulse Oximetry 97 97 Oxygen Delivery 11/16/24 07:08 11/16/24 07:13 11/16/24 07:18 Temperature Pulse Rate Blood Pressure Pulse Oximetry 97 97 98 Oxygen Delivery 11/16/24 07:23 11/16/24 07:28 11/16/24 07:30 Temperature Pulse Rate 92 Blood Pressure 119/64 Pulse Oximetry 97 97 Oxygen Delivery 11/16/24 07:33 11/16/24 07:38 11/16/24 07:43 Temperature Pulse Rate Blood Pressure Pulse Oximetry 97 98 98 Oxygen Delivery 11/16/24 07:48 11/16/24 07:53 11/16/24 07:58 Temperature Pulse Rate Blood Pressure Pulse Oximetry 98 99 99 Oxygen Delivery 11/16/24 08:00 11/16/24 08:07 11/16/24 08:12 Temperature Pulse Rate 88 Blood Pressure 124/69 Pulse Oximetry 98 100 Oxygen Delivery 11/16/24 08:17 11/16/24 08:22 11/16/24 08:27 Temperature Pulse Rate Blood Pressure Pulse Oximetry 97 99 98 Oxygen Delivery 11/16/24 08:30 11/16/24 08:32 11/16/24 08:37 Temperature Pulse Rate 90 Blood Pressure 129/72 Pulse Oximetry 96 100 Oxygen Delivery 11/16/24 08:40 11/16/24 08:42 11/16/24 08:47 Temperature 98.6 F Pulse Rate Blood Pressure Pulse Oximetry 100 100 Oxygen Delivery 11/16/24 08:52 11/16/24 08:57 11/16/24 09:00 Temperature Pulse Rate 83 Blood Pressure 131/75 Pulse Oximetry 100 99 Oxygen Delivery 11/16/24 09:02 11/16/24 09:07 11/16/24 09:12 Temperature Pulse Rate Blood Pressure Pulse Oximetry 97 98 99 Oxygen Delivery 11/16/24 09:17 Temperature Pulse Rate Blood Pressure Pulse Oximetry 99 Oxygen Delivery Exam Const: Other: Well-developed, well-nourished female in no acute distress. Neck: Other: Neck: Trachea midline, no thyromegaly or masses. Resp: Other: Lungs: Normal respiratory effort. Clear to auscultation bilaterally. Cardio: Other: Heart: Regular rate and rhythm with normal S1-S2. GI: Other: ABD: Soft, nontender, nondistended, gravid. No guarding or rebound tenderness. No hepatosplenomegaly. NST reactive. TOCO: contractions every 2-3 min. : Other: Cervix:3/80/-2. AROM with clear fluid. IUPC placed. Vertex. Back/Spine/Pelvis: Other: Back: No CVA tenderness. Skin: Other: Skin: No lesions, rashes or ulcers noted. Extrem: Other: Extremities: nontender with no edema Psych: Other: Mental status grossly normal, with normal mood and affect. H&P: Results Labs Labs: Short CBC 11/15/24 Range/Units 16:46 WBC 4.9 (4.5-10.0) K/mm3 Hgb 10.7 L (12.0-15.0) g/dL Hct 32.0 L (37.0-47.0) % Plt Count 238 (150-375) k/mm3 Assessment and Plan Assessment and plan (1) : Qualifiers: Weeks of gestation: 39 weeks Qualified Code(s): Z3A.39 - 39 weeks gestation of Code(s): Z34.90 - Encounter for supervision of normal , unspecified, unspecified trimester Status: Acute Assessment and Plan: A: IUP at term, desiring induction of labor. P: S/p cervidil. Oxytocin. Anticipate .
[2024-11-16] MEDS: ONDANSETRON INJ 4 MG/2 ML VIAL IV PUSH (12:11)
--- NOTE | 2024-11-16 13:07 | P.PCNOB_ITS ---
OB - Vaginal Delivery Note Procedure Delivery date: 11/16/24 Induction method: Per Cervidil Protocol Delivery augmentation: Rupture of Membranes and Pitocin Delivery monitor: External FHT, External Uterine and Internal Uterine Route of delivery: Episiotomy description: None Laceration Description: Periurethral and Perineal - 2nd Degree Delivery repair: vicryl Specimen: Yes (cord blood) Quantitative Blood Loss (ml): 350 Anesthesia type: Epidural Disposition: PACU Complications: None Narrative: 33 y/o at 39 1/7 weeks gestation who presented to the hospital for induction of labor. Cervidil was placed overnight, then withdrawn the next morning. Oxytocin was administered intravenously. Amniotomy was performed with return of clear fluid. She received an epidural for pain control. Her labor progressed and her cervix dilated completely. She pushed with good effort and delivered the infant's head to the perineum, followed by the body. The nose and mouth were bulb suctioned. After a delay, the cord was clamped and cut. The was handed off the field. Cord blood was collected. The placenta delivered spontaneously and was grossly normal in appearance. The usual 3 v essel cord was noted. A second degree midline perineal laceration was sustained. This was reapproximated using 3 0 Vicryl in the usual layered fashion. A figure of eight suture of the same material was used to reapproximate a periurethral laceration. Excellent hemostasis resulted as did excellent reapproximation of the normal anatomy. Needle and instrument counts were correct. The patient was taken to recovery room in stable condition. The infant went to the nursery in stable condition. I was present and scrubbed for the entire delivery. [place] Baby Date of : 11/16/24 Time of : 12:41 Gestational Age by Date: 39 Infant gender: Male Weight (pounds): 8 Weight (ounces): 4 presentation: vertex position: Left Occiput Anterior Placenta delivery description: Spontaneous and Normal Configuration Cord Vessel Description: 3 Vessels and Delayed Cord Clamping score one minute: 9 score five minutes: 9
--- NOTE | 2024-11-16 13:10 | PM.OBDSVD ---
DS: Admitting Diagnosis Discharge Date 11/18/24 Admitting Diagnosis IUP at 39 1/7 weeks DS: Discharge Diagnosis Discharge Diagnosis (1) (normal spontaneous vaginal delivery): Code(s): O80 - Encounter for full-term uncomplicated delivery Status: Acute OB - DS: Summary OB Procedures : None OB Procedures Intrapartum: Spontaneous Vag Delivery OB Procedures: : None Peripartum Data Laceration Description: Periurethral and Perineal - 2nd Degree Episiotomy description: None Time Spent with Patient Time attestation: Total time spent providing and/or coordinating discharge services: DS: Data Data Completed and Pending Labs on day of discharge: Labs from last 24 hours 11/15/24 16:46 WBC 4.9 RBC 3.84 L Hgb 10.7 L Hct 32.0 L MCV 83.3 MCH 27.9 MCHC 33.4 RDW 13.4 Plt Count 238 MPV 10.6 H Immature Gran % (Auto) 0.4 Neut % (Auto) 66.5 Lymph % (Auto) 23.5 Nance % (Auto) 8.6 H Eos % (Auto) 0.8 Baso % (Auto) 0.2 Lymph # (Auto) 1.15 Nance # (Auto) 0.4 Eos # (Auto) 0.0 Baso # (Auto) 0.0 Abs Immat Gran (auto) 0.02 Absolute Neuts (auto) 3.3 Absolute Nucleated RBC 0.000 Nucleated RBC % 0.0 Syphilis IgG/IgM Ab Non-reactive Blood Type O Positive Antibody Screen Negative Discharge Plan Discharge Attending physician on discharge: Wing Chowdary Discharging Clinician: Wing Chowdary Patient Disposition: Home Activity: pelvic rest Diet: regular Discharge Instructions: Call or return if temperature above 100.4? F, increased abdominal pain, increased vaginal bleeding or any new problems. Patient Language: Nigerien Stand Alone Forms: General Discharge Information Follow-up/Referrals: Wing Chowdary MD [Physician, [employer]] - 6 Weeks Discharge Medications: New ibuprofen 600 mg tablet 600 mg PO Q6H PRN (Reason: cramps) Qty: 30 0RF ferrous sulfate 325 mg (65 mg iron) tablet 325 mg PO DAILY Qty: 30 0RF Continued famotidine [Pepcid] 20 mg tablet 20 mg PO DAILY Zyrtec 10 mg capsule 10 mg PO DAILY PRN (Reason: allergy symptoms) prenat.vits,jorge,dol-oura-lhnpo Tablet 1 tablet PO DAILY Date of admission: 11/15/24 15:57 Primary Care Provider: Issac,Magnus Javed Admitting Provider: Wing Chowdary Attending physician on admission: Wing Chowdary Condition: Stable
[2024-11-16] MEDS: OXYTOCIN 30 UNITS/NS 500 ML 30 UNITS/500 ML BAG 999 UNITS IV CONT (13:27)
--- NOTE | 2024-11-16 15:51 | OBPPTRN ---
Patient transferred to post room #291 via wheelchair. Support person present. Oriented to unit, room, information board, rooming in, admission packet and security measures. Patient verbalizes understanding.
--- NOTE | 2024-11-16 16:32 | PC.NURSE ---
1632. Introductions were made, then consulted with patient to assess needs related to . Discussed with mother her plans to feed her and the experience so far. Encouraged mother to express any questions or concerns she has regarding feedings. Advised her to call out for a latch check or if she needs assistance waking or positioning baby. Reviewed the blue feeding worksheet for required output and feeding at least 8-12 times every 24 hours. Resources provided for inpatient and outpatient services with the feeding sheet, mom/baby guide, and name/number written on the communication board. Mother voiced understanding of information and will call if there is a request for assistance. Reported to the Primary RN?
[2024-11-16] MEDS: ACETAMINOPHEN 325 MG TABLET 650 MG PO (23:40)
[2024-11-16] MEDS: IBUPROFEN 600 MG TABLET PO (23:40)
[2024-11-17 04:35] LABS: Hematocrit 27.4 % (37.0-47.0); Hemoglobin 9.1 g/dL (12.0-15.0)
[2024-11-17 08:11] VITALS: BP 157/79; PULSE 99; RESP 20; TEMP 36.7; O2SAT 98
--- NOTE | 2024-11-17 08:22 | PC.NURSE ---
On 11/17/24, the student, Brenda Moore, provided care and [facility]. I have reviewed the student's documentation and agree with the findings. Informed primary RN of pt's vital signs taken by student.
--- NOTE | 2024-11-17 09:19 | P.PNOB_ITS ---
OB - PN: Subj Subjective Date/time seen: 11/17/24 09:19 Narrative: Pain OK. Would like circumcision for son. OB - PN: Obj Data Labs 11/17/24 03:42 Labs: Laboratory Results - last 24 hr 11/17/24 03:42 Hgb 9.1 L Hct 27.4 L OB - PN A/P Plan day: 1 Comments: A: PPD#1, doing well. P: Reviewed circ. Routine care. Exam 2 Psych: Other: AVSS ABD soft, nontender, fundus firm EXT nontender
[2024-11-17] MEDS: MULTIVIT/MIN/PREN/FOL AC/IRON TABLET 1 TAB PO (09:50)
[2024-11-17] MEDS: IBUPROFEN 600 MG TABLET PO ×2 (09:51→20:20)
[2024-11-17] MEDS: DOCUSATE SODIUM 100 MG CAPSULE PO ×2 (09:51→16:57)
[2024-11-17 11:13] VITALS: BP 150/89
--- NOTE | 2024-11-17 11:42 | WPDANLDPN2 ---
Anes-Prog Note L&D Date/Time: 11/17/24 11:42 Neuro status: Neuro function grossly intact. Cardiovascular status: normal Respiratory status: normal Airway patency: baseline Mental status: baseline Post-Op hydration status: normal Vital Signs: Last Vital Signs Temp 36.7 C 11/17/24 08:11 Pulse 99 11/17/24 08:11 Resp 20 11/17/24 08:11 BP 150/89 H 11/17/24 11:13 Pulse Ox 98 11/17/24 08:11 O2 Del Method Room Air 11/17/24 07:15 Pain score (VAS): 0 Post-procedural complaints: none Patient feedback: Patient satisfied with anesthetic care.
[2024-11-17 12:11] VITALS: BP 125/57; PULSE 85; RESP 16; TEMP 37.2; O2SAT 99
[2024-11-17] MEDS: ACETAMINOPHEN 325 MG TABLET 650 MG PO (16:57)
[2024-11-17 19:07] VITALS: BP 130/77; PULSE 99; RESP 20; TEMP 36.8; O2SAT 97
[2024-11-18] MEDS: ACETAMINOPHEN 325 MG TABLET 650 MG PO (07:21)
[2024-11-18 08:00] VITALS: BP 118/72; PULSE 83; RESP 16; TEMP 37; O2SAT 98
[2024-11-18] MEDS: DOCUSATE SODIUM 100 MG CAPSULE PO (08:41)
[2024-11-18] MEDS: MULTIVIT/MIN/PREN/FOL AC/IRON TABLET 1 TAB PO (08:41)
--- NOTE | 2024-11-18 08:54 | P.PNOB_ITS ---
OB - PN: Subj Subjective Date/time seen: 11/18/24 08:54 Narrative: Pain OK. Would like to go home. OB - PN: Obj Data Labs 11/17/24 03:42 OB - PN A/P Plan day: 2 Comments: A: PPD#2, doing well. P: Home to f/u 6 weeks. Exam 2 Psych: Other: AVSS ABD soft, nontender, fundus firm EXT nontender
[2024-11-19 09:47] VITALS: BP 124/75; PULSE 82; RESP 18; TEMP 36.7; O2SAT 98
== END 2024-11-18 13:10 | disposition home or self-care (01) | DRG 807 ==
LOC: ANHLDR 11-16 13:11 → ANHOB2 11-16 15:53
PROVIDERS: Admitting Provider Obstetrics & Gynecology; PCP Internal Medicine; Visit Provider Obstetrics & Gynecology
DX: O70.1 Second degree perineal laceration during delivery (principal); Z37.0 Single live birth; Z3A.39 39 weeks gestation of pregnancy; O71.82 Other specified trauma to perineum and vulva
CPT/HCPCS: 36415; 85014; 85018; 85025; 86593; 86850; 86900; 86901; A9270; J2405; J2590; J2795; J7120